=== PATIENT | male | born 1945 | race Caucasian/White ===

== ENCOUNTER 2021-02-03 15:53 | Inpatient (IN) | payer OTHER, MEDICARE ==
[~2021-02-03] VITALS: Ht 180.3 cm; Wt 120.4 kg
[2021-02-03] MEDS ORDERED: ANORO ELLIPTA1 EAC1 INH (16:18)
[2021-02-03] MEDS ORDERED: ATOR10 PO (16:18)
[2021-02-03] MEDS ORDERED: GLIP10 PO (16:19)
[2021-02-03] MEDS ORDERED: LEVOCETIRIZINE D5 MG PO (16:19)
[2021-02-03] MEDS ORDERED: TAMSULOSIN HCL0.4 M1 PO (16:19)
[2021-02-03] MEDS ORDERED: LISI20 PO (16:19)
[2021-02-03 17:02] LABS: BASOPHILS ABSOLUTE AUTO 0.03 K/mm3 (0.00-0.23); BASOPHILS PERCENT AUTO 0 % (0-2); EOSINOPHILS PERCENT AUTO 0 % (0-6); Hematocrit 41.7 % (37.0-53.0); Hemoglobin 14.2 g/dL (13.5-17.5); IMMATURE GRAN PERCENT AUTO 1 % (0-1); LYMPHOCYTES PERCENT AUTO 6 % (21-46); MONOCYTES ABSOLUTE AUTO 1.61 K/mm3 (0.16-1.47); MONOCYTES PERCENT AUTO 11 % (4-13); Mean Corpuscular HGB 30.8 pg (26.0-34.0); Mean Corpuscular HGB Conc 34.1 g/dL (31.5-36.5); Mean Corpuscular Volume 91 fL (80-100); Mean Platelet Volume 11.3 fL (9.1-12.4); NEUTROPHILS PERCENT AUTO 82 % (41-73); Platelet Count 146 K/mm3 (150-400); RDW Standard Deviation 39.3 fL (35.1-46.3); Red Blood Cell Count 4.61 M/mm3 (4.30-5.90); White Blood Cell Count 14.64 K/mm3 (4.00-11.30)
[2021-02-03 17:18] LABS: International Normalized Ratio 1.11; Prothrombin Time Results 11.9 Sec (9.7-11.5)
[2021-02-03 17:26] LABS: Alanine Aminotransfer (ALT/SGP 25 U/L (12-78); Albumin/Globulin Ratio 0.8 (0.8-1.8); Alk Phos 40 U/L (50-136); Anion Gap 8 mmol/L (6-16); Aspartate Aminotrans (AST/SGOT 13 U/L (12-37); Blood Urea Nitrogen 25 mg/dL (8-24); Bun/Creatinine Ratio 22.9 (12.0-20.0); CO2, Blood 21 mmol/L (21-32); Calcium, Blood 8.3 mg/dL (8.5-10.1); Chloride, Blood 107 mmol/L (98-108); Creatinine, Blood 1.09 mg/dL (0.60-1.20); Glomerular Filtration Rate >60 (60-); Glucose, Blood 204 mg/dL (70-99); Potassium, Blood 4.2 mmol/L (3.5-5.5); Sodium, Blood 136 mmol/L (136-145)
[2021-02-03 17:28] LABS: Troponin I <0.015 ng/mL (0.000-0.040)
[2021-02-03 17:53] LABS: SARS-Cov-2 (COVID-19) PCR, MMC NEGATIVE (NEGATIVE)
[2021-02-03] MEDS ORDERED: Aspir 8181 MG PO (18:21)
[2021-02-03] MEDS ORDERED: ALBU90OI INH (18:24)
[2021-02-03] MEDS ORDERED: OMEP20ER PO (18:24)
[2021-02-03] MEDS ORDERED: Hair, Skin & N1 EACH PO (18:25)
[2021-02-03] MEDS ORDERED: METAMUCIL POWD575 GM PO (18:25)
[2021-02-03] MEDS ORDERED: NASACORT10.8 ML (18:25)
[2021-02-03] MEDS ORDERED: ASCO500 PO (18:25)
[2021-02-03] MEDS ORDERED: ACYC800 PO (18:26)
[2021-02-03] MEDS ORDERED: IPRATROPIUM BRO15 ML (18:26)
[2021-02-03 19:38] LABS: Source, Urine Clean Catch
[2021-02-03 19:46] LABS: Appearance, Urine Clear (Clear); Blood, Urine Neg (Neg); Color, Urine Yellow (P-Yellow); Glucose Qualitative, Urine Neg (Neg); Ketones, Urine 1+ (Neg); Leukocyte Esterase, Urine 1+ (Neg); Nitrite, Urine Neg (Neg); Protein, Urine 2+ (Neg); Specific Gravity, Urine 1.025 (1.003-1.022); Urobilinogen, Urine 1+ (Normal)
[2021-02-03 19:56] LABS: Bilirubin, Urine 1+ (Neg)
[2021-02-03 20:09] LABS: Amorphous Mod (0-Heavy); Bacteria Mod /hpf; Mucus Light (0-Heavy); Red Blood Cells, Urine 0-2 /hpf (0-2); Squamous Epithelial Cells Few /hpf (Few)
--- NOTE | 2021-02-03 22:43 | NUR ---
PT CURRENTLY RESTING IN BED QUIETLY. HE REPORTS PAIN AT A 1/10, UNLESS MOVED OR ABDOMEN PALPATED. A&O TO PERSON, PLACE, AND EVENT AND IS PLEASANT AND CALM. ABDOMEN IS DISTENDED MODERATELY AND TENDER. DENIES ANY NAUSEA OR VOMITING AT THIS TIME. LUNGS ARE CLEAR BILATERALLY, SATS >95% ON 2L NC. HR IS AFIB/AFLUTTER AND TACHY IN 110-120S. BLOOD PRESSURE ARE IN 100-90S/70-80S. PT REPORTS URINARY INCONTINENCE AND WEARS DEPENDS AT HOME. PT CLEANED AND DEPENDS CHANGED. SKIN GROSSLY INTACT, NO SIGNS OF BREAKDOWN. RIGHT IV SALINE LOCKED. LEFT IV INFUSING NS @ 100ML/HR. WAS NOTIFIED OF PT'S STATUS.
--- NOTE | 2021-02-04 04:00 | NUR ---
PT NOTED TO HAVE AFIB W/ RVR RATE OF 150 FOR OVER 30 MINUTES, CALL MADE TO DR. AMADO IN REGARDS TO SUCH, ORDER RECEIVED FOR BOLUS OF LR 600ML WO X 1. NO OTHER ORDERS RECEIVED.
[2021-02-04 04:08] LABS: BASOPHILS ABSOLUTE AUTO 0.02 K/mm3 (0.00-0.23); BASOPHILS PERCENT AUTO 0 % (0-2); EOSINOPHILS PERCENT AUTO 0 % (0-6); Hematocrit 40.8 % (37.0-53.0); Hemoglobin 13.7 g/dL (13.5-17.5); IMMATURE GRAN ABSOLUTE AUTO 0.08 K/mm3 (0.00-0.10); IMMATURE GRAN PERCENT AUTO 1 % (0-1); LYMPHOCYTES ABSOLUTE AUTO 1.19 K/mm3 (0.84-5.20); LYMPHOCYTES PERCENT AUTO 9 % (21-46); MONOCYTES PERCENT AUTO 10 % (4-13); Mean Corpuscular HGB 30.8 pg (26.0-34.0); Mean Corpuscular HGB Conc 33.6 g/dL (31.5-36.5); Mean Corpuscular Volume 92 fL (80-100); Mean Platelet Volume 11.4 fL (9.1-12.4); NEUTROPHILS ABSOLUTE AUTO 11.33 K/mm3 (1.96-9.15); NEUTROPHILS PERCENT AUTO 81 % (41-73); Platelet Count 145 K/mm3 (150-400); RDW Standard Deviation 40.1 fL (35.1-46.3); Red Blood Cell Count 4.45 M/mm3 (4.30-5.90); White Blood Cell Count 14.02 K/mm3 (4.00-11.30)
[2021-02-04 04:31] LABS: Alanine Aminotransfer (ALT/SGP 21 U/L (12-78); Albumin, Blood 2.6 g/dL (3.4-5.0); Albumin/Globulin Ratio 0.6 (0.8-1.8); Alk Phos 44 U/L (50-136); Anion Gap 6 mmol/L (6-16); Aspartate Aminotrans (AST/SGOT 13 U/L (12-37); Bilirubin, Total 0.8 mg/dL (0.1-1.0); Blood Urea Nitrogen 23 mg/dL (8-24); Bun/Creatinine Ratio 27.2 (12.0-20.0); CO2, Blood 21 mmol/L (21-32); Calcium, Blood 8.1 mg/dL (8.5-10.1); Chloride, Blood 111 mmol/L (98-108); Creatinine, Blood 0.85 mg/dL (0.60-1.20); Globulin, Blood 4.1 g/dL (2.2-4.0); Glomerular Filtration Rate >60 (60-); Glucose, Blood 183 mg/dL (70-99); Potassium, Blood 3.8 mmol/L (3.5-5.5); Sodium, Blood 138 mmol/L (136-145); Total Protein, Blood 6.7 g/dL (6.4-8.2)
--- NOTE | 2021-02-04 06:23 | NUR ---
PT CONTINUES AFTER BOLUS TO HAVE AFIB W/ RVR, RATE IMPROVED SLIGHTLY TO 130'S. PT DENIES ANY CHEST PAIN OR SHORTNESS OF BREATH. HE STATES HE IS FEELING BETTER THAN HE WAS WHEN HE ARRIVED AT THE HOSPITAL. CONTINUES TO C/O PAIN IN THE RUQ, ESPECIALLY WHEN TOUCHED OR HE MOVES.
--- NOTE | 2021-02-04 06:35 | NUR ---
PT CURRENTLY RESTING. A&O X3, SLEPT WELL THROUGHOUT THE NIGHT. LUNGS CLEAR, SATS >95% ON 2L NC. PT OCCASIONAL COUGH, WITH THICK WHITE SPUTUM. AFIB/AFLUTTER WITH RVR, RATE IN 140-150'S. PRESSURES REMAINED IN 100-110'S/70-80'S. ABDOMEN REMAINS TENDER TO PALPATION, PT REPORTS PAIN ONLY WITH MOVEMENT/REPOSITIONING. DENIES NAUSEA/VOMITING, BOWEL TONES HYPERACTIVE WITH MULTIPLE SMALL BOWEL MOVEMENTS T/O SHIFT. PT REPORTS INCONTINENCE OF URINE, USES CALL LIGHT APPROPRIATELY FOR ATTENDS CHANGES. SKIN IS GROSSLY INTACT. AWAITING ECHO IN THE AM. WILL GIVE REPORT TO ONCOMING RN.
--- NOTE | 2021-02-04 08:33 | NUR ---
Care Assumed 0700 Pt A/O to location, event, and following directions. States having pain (8/10) on RUQ when touched otherwise pain is (2-3/10). On NS @ 100 ml/hr. HR 130-140's, AFIB/AFLUTTER. Attends in place. Lungs clear on 2 L via NC, SPO2 > 90%. Call light within reach.
--- NOTE | 2021-02-04 10:32 | NUR ---
Aflutter Pt treated with Lopressor per emar X 3, HR has decreased from 150-140's to 80-110. Provider called and left voicemail. MAP > 75. Will continue to monitor.
--- NOTE | 2021-02-04 12:10 | NUR ---
Update- Pt started on Diltiazem 5 mg/hr for HR control, pt remains in Aflutter HR 100-120's. Having frequent liquid diarrhea, states this is normal for him at home as well. Attempted to place rectal tube but pt did not tolerate. Pt states too painful. Attends in place.
--- NOTE | 2021-02-04 18:59 | NUR ---
Shift Summary Dr. Singleton in to see patient around 1600 and pt to be taken in for surgery tomorrow. Pt started on clear liquid diet. at bedside and updated. Pt provided dinner. Remains on Diltiazem GTT @ 15 mg/hr. HR 90-100, remains in Aflutter. Overall VSS. Pt remains A/O X 4. Call light within reach. Will report to nightshift.
--- NOTE | 2021-02-04 22:14 | NUR ---
ASSUMED CARE AT 1900 PT LAYING IN BED AND IS ALERT/ORIENTED X3, TO ALL EXCEPT DATE; OCCATIONALLY USES CALL LIGHT. REPORTS 2/10 PAIN WHEN AT REST TO THE RUQ BUT INCREASES TO A SHARP PAIN DURING ACTIVITY. SPO2 >94% ON 2L NC; DYSPNEA NOTED DURING ACTIVITY. A-FLUTTER NOTED; HR 100'S; CARDIZEM INFUSING AT 15MG/HR. BP STABLE. TEMP 99.6. PT INCONTINENT OF BLADDER AND BOWEL. PLAN TO BE NPO AT MIDNIGHT. SEE SHIFT ASSESSMENT FOR FULL ASSESSMENT.
[2021-02-05 03:20] LABS: BASOPHILS ABSOLUTE AUTO 0.02 K/mm3 (0.00-0.23); BASOPHILS PERCENT AUTO 0 % (0-2); EOSINOPHILS ABSOLUTE AUTO 0.05 K/mm3 (0.00-0.68); EOSINOPHILS PERCENT AUTO 1 % (0-6); Hematocrit 39.6 % (37.0-53.0); Hemoglobin 13.2 g/dL (13.5-17.5); IMMATURE GRAN ABSOLUTE AUTO 0.04 K/mm3 (0.00-0.10); IMMATURE GRAN PERCENT AUTO 0 % (0-1); LYMPHOCYTES ABSOLUTE AUTO 1.16 K/mm3 (0.84-5.20); LYMPHOCYTES PERCENT AUTO 12 % (21-46); MONOCYTES PERCENT AUTO 7 % (4-13); Mean Corpuscular HGB 30.7 pg (26.0-34.0); Mean Corpuscular HGB Conc 33.3 g/dL (31.5-36.5); Mean Corpuscular Volume 92 fL (80-100); NEUTROPHILS ABSOLUTE AUTO 8.03 K/mm3 (1.96-9.15); NEUTROPHILS PERCENT AUTO 80 % (41-73); Platelet Count 141 K/mm3 (150-400); RDW Standard Deviation 41.1 fL (35.1-46.3)
[2021-02-05 03:38] LABS: Alanine Aminotransfer (ALT/SGP 20 U/L (12-78); Albumin, Blood 2.4 g/dL (3.4-5.0); Albumin/Globulin Ratio 0.6 (0.8-1.8); Alk Phos 42 U/L (50-136); Anion Gap 5 mmol/L (6-16); Aspartate Aminotrans (AST/SGOT 13 U/L (12-37); Bilirubin, Total 0.5 mg/dL (0.1-1.0); Blood Urea Nitrogen 17 mg/dL (8-24); Bun/Creatinine Ratio 21.9 (12.0-20.0); CO2, Blood 23 mmol/L (21-32); Calcium, Blood 7.9 mg/dL (8.5-10.1); Chloride, Blood 115 mmol/L (98-108); Creatinine, Blood 0.78 mg/dL (0.60-1.20); Globulin, Blood 4.2 g/dL (2.2-4.0); Glomerular Filtration Rate >60 (60-); Glucose, Blood 179 mg/dL (70-99); Potassium, Blood 3.5 mmol/L (3.5-5.5); Sodium, Blood 143 mmol/L (136-145); Total Protein, Blood 6.6 g/dL (6.4-8.2)
--- NOTE | 2021-02-05 06:24 | NUR ---
END OF SHIFT SUMMARY NO ACUTE EVENTS OVERNIGHT. PT SLEPT ON AND OFF T/O THE SHIFT. HE IS ALERT/ORIENTED X3 AND ABLE TO USE HIS CALL LIGHT OCCATIONALLY. AFEBRILE. SPO2 >94% ON 2L NC. A-FLUTTER NOTED; HR 70-90'S; CARDIZEM TITRATED DOWN TO 5MG/HR. SBP 110-130. RUQ PAIN INCREASED DURING REPOSITIONING; FENTANYL GIVEN X1 AND HELPFUL. PT INCONTINENT OF BLADDER AND BOWEL; SEVERAL LOOSE STOOLS THIS SHIFT. PT NPO SINCE MIDNIGHT. WILL REPORT TO AM RN WHEN AVAILABLE.
--- NOTE | 2021-02-05 08:20 | NUR ---
ASSESSMENT- DR. SANCHEZ HERE-PLANS FOR SURGERY TODAY PT AWAKE, ALERT, COOPERATIVE. REQUESTING TO GET UP. UP TO CHAIR WITH ASSIST, AM CARE DONE. TALKATIVE, [place]. DENIES PAIN AT REST, STATES ABDOMEN TENDER TO TOUCH, REFUSES NEED FOR PAIN RX. AFLUTTER, BP STABLE. PIV INTACT LEFT FA, INFILTRATED RIGHT FA, SITE REPLACED. LUNGS CLEAR, NO SOB. DEPENDS ON.
--- NOTE | 2021-02-05 11:49 | NUR ---
PT SLEEPING WHEN UNDISTURBED, VSS. AFLUTTER, CARDIZEM CONTINUES AT 5 MG/HR. DID STATE HAD SOME SOB AFTER GETTING BACK TO BED, RESOLVED WITH RESPIRATORY TREATMENT. LUNGS CLEAR, MAINTAINING SATURATIONS. AT BEDSIDE
--- NOTE | 2021-02-05 13:36 | NUR ---
REPEAT BLOOD SUGAR 151. PT AWAKE, ALERT, READY FOR SURGERY. NPO. ATRIAL FLUTTER RATE 80'S. CARDIZEM GTT AT 5 MG/HR, 1/2 NS AT 75 CC/HR
--- NOTE | 2021-02-05 14:29 | NUR ---
REPORT TO CHARLENE LEE. PT READIED FOR SURGERY.
--- NOTE | 2021-02-05 15:15 | NUR ---
REPORT CALLED TO BRI SALDANA RN FOR POST OP TRANSFER
--- NOTE | 2021-02-05 16:17 | NUR ---
02/05/21 1617 JANICEBERNICE NIELSEN PT RECEIVED SCHEDULED DOSE OF ANTIBIOTICS INTRA OP PER DR ORDERS.
--- NOTE | 2021-02-05 17:47 | NUR ---
Update 02/05/2021: Fang is patients contact [phone] Lives at home with . Plan to return home post discharge. Pt. is now post-op. No discharge date/time planned at this time.
--- NOTE | 2021-02-05 18:13 | NUR ---
RECOVERY NOT- PT TO ICU POST OP-OR NURSES AND DR. SEGOVIA IN ATTENDANCE. PT ABLE TO OPEN EYES TO STIMULUS, BREATHING, ORAL ETT AND AIRWAY D/C BY DR. SEGOVIA, NRB APPLIED. AFLUTTER, BP STABLE. CARDIZEM AT 5 MG/HR. PIV X 2 INTACT. LUNGS WITH RHONCHI THROUGHOUT. NO BOWEL SOUNDS, ABDOMEN SOFT, 5 PUNCTURE SITES DI. RIGHT ABDOMEN DRAIN WITH BLOODY DRAINAGE-[address] SANCHEZ HERE-UPDATED. INCONTINENT URINE-ATTENDS CHANGED. SCDS ON.BLOOD SUGAR ELEVATED, COVERAGE GIVEN.
--- NOTE | 2021-02-05 18:42 | NUR ---
PT SLEEPING, AWAKENS EASILY TO NAME. DENIES PAIN AT REST. AFLUTTER-RATE 90-100'S. BP STABLE. NO N/V. MAINTAINING SATURATIONS WITH NASAL CANNULA 1/2 NS AT 75 CC/HR.
--- NOTE | 2021-02-05 20:45 | NUR ---
ASSUMING PT CARE: PT RESTING IN BED W/ EYES CLOSED, RR EVEN & UNLABORED. NC IN MOUTH TO KEEP SATS >92% PT SNORES HEAVILY WHILE ASLEEP. PT AWAKES TO NAME & INITIALLY APPEARS CONFUSED, HOWEVER WHEN GIVEN HEARING AIDS,PT IS ORIENTED x4, ABLE TO FOLLOW COMMANDS, & REQUESTS WATER & ICE CHIPS. ABD IS TENDER W/ MILD "CONSTANT DISCOMFORT BUT NO PAIN", PAIN W/IN PROPORTION. MONITOR INDICATES AFLUTTER W/ RATE 70s. PT IS STILL QUITE DROWSY & OFTEN FALLS ASLEEP DURING ASSESSMENTS. WILL CONTINUE CLEAR LIQUIDS UNTIL PT IS MORE AWAKE. GTTs: DILTIAZEM 10mg/hr. 1/2 NS @ 100ml/hr.
[2021-02-05 23:24] LABS: Vancomycin, Trough 10.2 ug/mL (5.0-10.0)
--- NOTE | 2021-02-05 23:42 | NUR ---
UPDATE: DIET ADVANCEMENT PT TOLERATING ICE CHIPS & WATER VERY WELL. ABLE TO TAKE PO MEDS W/O DIFF. HE IS MUCH MORE AWAKE & MOVING MORE IN BED, ABLE TO SHIFT HIPS & REPOSITION SELF FOR COMFORT. PT PROVIDED W/ MAGIC CUP & ATE W/O DIFF OR C/O NAUSEA. WILL CONTINUE TO MONITOR CLOSELY & REPORT APPROPRIATE.
[2021-02-06 03:45] LABS: BASOPHILS ABSOLUTE AUTO 0.01 K/mm3 (0.00-0.23); BASOPHILS PERCENT AUTO 0 % (0-2); EOSINOPHILS PERCENT AUTO 0 % (0-6); Hematocrit 39.1 % (37.0-53.0); IMMATURE GRAN ABSOLUTE AUTO 0.05 K/mm3 (0.00-0.10); IMMATURE GRAN PERCENT AUTO 1 % (0-1); LYMPHOCYTES ABSOLUTE AUTO 0.49 K/mm3 (0.84-5.20); LYMPHOCYTES PERCENT AUTO 5 % (21-46); MONOCYTES ABSOLUTE AUTO 0.63 K/mm3 (0.16-1.47); MONOCYTES PERCENT AUTO 6 % (4-13); Mean Corpuscular HGB 30.9 pg (26.0-34.0); Mean Corpuscular HGB Conc 33.2 g/dL (31.5-36.5); Mean Corpuscular Volume 93 fL (80-100); NEUTROPHILS ABSOLUTE AUTO 8.98 K/mm3 (1.96-9.15); NEUTROPHILS PERCENT AUTO 88 % (41-73); Platelet Count 177 K/mm3 (150-400); RDW Coefficient Variation 12.1 % (11.7-14.2); RDW Standard Deviation 41.2 fL (35.1-46.3); Red Blood Cell Count 4.21 M/mm3 (4.30-5.90); White Blood Cell Count 10.16 K/mm3 (4.00-11.30)
[2021-02-06 04:06] LABS: Alanine Aminotransfer (ALT/SGP 44 U/L (12-78); Albumin, Blood 2.3 g/dL (3.4-5.0); Albumin/Globulin Ratio 0.5 (0.8-1.8); Alk Phos 46 U/L (50-136); Anion Gap 8 mmol/L (6-16); Aspartate Aminotrans (AST/SGOT 34 U/L (12-37); Bilirubin, Total 0.3 mg/dL (0.1-1.0); Blood Urea Nitrogen 28 mg/dL (8-24); Bun/Creatinine Ratio 28.6 (12.0-20.0); CO2, Blood 20 mmol/L (21-32); Chloride, Blood 114 mmol/L (98-108); Creatinine, Blood 0.98 mg/dL (0.60-1.20); Globulin, Blood 4.4 g/dL (2.2-4.0); Glomerular Filtration Rate >60 (60-); Glucose, Blood 284 mg/dL (70-99); Potassium, Blood 4.4 mmol/L (3.5-5.5); Sodium, Blood 142 mmol/L (136-145); Total Protein, Blood 6.7 g/dL (6.4-8.2)
--- NOTE | 2021-02-06 06:30 | NUR ---
SHIFT SUMMARY: PT RESTED WELL T/O THE NIGHT, AWAKING A FEW TIMES D/T PAIN. AFTER PO PAIN MEDS PT WAS ABLE TO REST SOUNDLY. DIET ADVANCED, PT TOLERATING SOFT FOODS WELL. NO N/V OR INC ABD PAIN. MONITOR INDICATES AFLUTTER W/ RATE IN THE 70s. DILTIAZEM @7mg/hr. ABD ONLY MILDLY TENDER. HYPOACTIVE, TINKLING BT. MAHENDRA DRAINING WELL W/ SEROSANGUINOUS OUTPUT. WILL CONTINUE TO MONITOR & REPORT APPROPRIATE UNTIL REPORT OFF TO ONCOMING RN.
--- NOTE | 2021-02-06 09:51 | NUR ---
AM NOTE... ASSUMED CARE OF PT AT 0700, PT IS A&Ox4 AND S/P LAP DANIELEY. PT C/O ABD WITH MOVEMENT OR COUGHING, PT TAUGHT TO SPLINT ABD PRIOR TO COUGHING. PT IS IN AFLUTTER WITH A CONTROLLED RATE IN THE 70'S-90'S, ON CARDIZEM GTT AT 5MG/HR. PT DENIES ANY CHEST PAIN/PRESSURE. PT DENIES A HISTORY OF AFLUTTER/AFIB, PT WAS STARTED ON PO METOPROLOL TARTRATE. PT IS ON 2L NC WITH O2 SATS >90%, PT DOES NOT USE O2 AT HOME JUST A CPAP, PT'S L/C COARSE T/O DIM IN THE BASES. PT HAS DEPENDENT SCROTAL EDEMA, PT HAS EPISODES OF INCONT OF URINE D/T "LEAKING" AND URGENCY. PT ASKED THIS RN IF HE COULD GET UP IN THE CHAIR AND "GET MOVING." CALL LIGHT IN REACH WILL CONTINUE TO MONITOR.
--- NOTE | 2021-02-06 19:36 | NUR ---
ASSUMING PT CARE: PT SITTING UP IN BED, WATCHING TV. APPROPRIATELY INTERACTIVE W/ STAFF. PT C/O INC ABD PRESSURE & DISCOMFORT, HE DENIES FEELING PAIN, ONLY THAT HE IS INCREASINGLY UNCOMFORTABLE. WHEN IS BOOSTED & BED & MOVED FROM SIDE TO SIDE, HE IS ABLE TO BELCH & PRODUCE FLATUS WHICH RELIEVED HIS DISCOMFORT SOMEWHAT. MAHENDRA DRAIN W/ APPROX 50cc DARK BILIOUS DRAINAGE. INSERTION SITE DOES APPEAR MORE DISTENDED COMPARED TO LAST NIGHT. AREA IS TENDER BUT PAIN APPEARS W/IN PROPORTION. DR SANCHEZ CALLED TO BEDSIDE TO ASSESS. SHE EXPLAINS BECAUSE OF THE PORTION OF THE GALBLADDER WHICH WAS LEFT IN THE ABD, IT WILL BE NML TO SEE BOTH BILIOUS & SEROSANGUINOUS DRAINAGE. SHE STS SHE IS NOT CONCERNED OF THE DISTENTION & AGREES PT IS APPROPRIATE TO BE TRANSFERRED TO SURGICAL FLOOR. REPORT TO BE GIVEN SHORTLY.
--- NOTE | 2021-02-06 21:00 | NUR ---
BEDSIDE REPORT GIVEN TO SURGICAL FLOOR RN PT OOTD W/ SURGICAL FLOOR TEAM VIA WC.
--- NOTE | 2021-02-06 21:05 | NUR ---
RECEIVED BEDSIDE REPORT IN ICU AND TRANSFERRED PT TO SURGICAL FLOOR. HE IS AWAKE, ALERT, AND ORIENTED. ONE PERSON ASSIST WITH TRANSFER FROM RECLINER TO WHEELCHAIR AND THEN TO BED. HEARING AIDS AND MAHENDRA DRAIN IN PLACE. PERSONAL BELONGINGS TRANSPORTED WITH PT TO SURGICAL FLOOR. AVERY.
[2021-02-06 23:51] LABS: Vancomycin, Trough 13.1 ug/mL (5.0-10.0)
[2021-02-07 05:35] LABS: BASOPHILS ABSOLUTE AUTO 0.02 K/mm3 (0.00-0.23); BASOPHILS PERCENT AUTO 0 % (0-2); EOSINOPHILS ABSOLUTE AUTO 0.03 K/mm3 (0.00-0.68); EOSINOPHILS PERCENT AUTO 0 % (0-6); Hematocrit 43.4 % (37.0-53.0); Hemoglobin 14.5 g/dL (13.5-17.5); IMMATURE GRAN ABSOLUTE AUTO 0.06 K/mm3 (0.00-0.10); IMMATURE GRAN PERCENT AUTO 1 % (0-1); LYMPHOCYTES ABSOLUTE AUTO 1.14 K/mm3 (0.84-5.20); LYMPHOCYTES PERCENT AUTO 10 % (21-46); MONOCYTES PERCENT AUTO 9 % (4-13); Mean Corpuscular HGB 30.2 pg (26.0-34.0); Mean Corpuscular HGB Conc 33.4 g/dL (31.5-36.5); Mean Corpuscular Volume 90 fL (80-100); Mean Platelet Volume 11.3 fL (9.1-12.4); NEUTROPHILS ABSOLUTE AUTO 9.28 K/mm3 (1.96-9.15); NEUTROPHILS PERCENT AUTO 80 % (41-73); Platelet Count 228 K/mm3 (150-400); RDW Coefficient Variation 11.9 % (11.7-14.2); RDW Standard Deviation 40.3 fL (35.1-46.3); White Blood Cell Count 11.53 K/mm3 (4.00-11.30)
[2021-02-07 05:54] LABS: Alanine Aminotransfer (ALT/SGP 34 U/L (12-78); Albumin, Blood 2.5 g/dL (3.4-5.0); Albumin/Globulin Ratio 0.5 (0.8-1.8); Alk Phos 53 U/L (50-136); Anion Gap 8 mmol/L (6-16); Aspartate Aminotrans (AST/SGOT 14 U/L (12-37); Bilirubin, Total 0.4 mg/dL (0.1-1.0); Blood Urea Nitrogen 28 mg/dL (8-24); Bun/Creatinine Ratio 33.2 (12.0-20.0); CO2, Blood 21 mmol/L (21-32); Calcium, Blood 8.6 mg/dL (8.5-10.1); Chloride, Blood 112 mmol/L (98-108); Creatinine, Blood 0.84 mg/dL (0.60-1.20); Globulin, Blood 4.6 g/dL (2.2-4.0); Glomerular Filtration Rate >60 (60-); Glucose, Blood 214 mg/dL (70-99); Potassium, Blood 3.7 mmol/L (3.5-5.5); Sodium, Blood 141 mmol/L (136-145); Total Protein, Blood 7.1 g/dL (6.4-8.2)
--- NOTE | 2021-02-07 06:20 | NUR ---
SHIFT SUMMARY: CLIFTON IS A&OX4. VSS, NO ACUTE EVENTS OVERNIGHT. HE HAS COMPLAINED OF VERTIGO AND IT WAS NOTED THAT HIS BLOOD PRESSURE WAS LOW DIRECTLY AFTER RETURNING TO BED, BUT AN IMMEDIATE REPEAT SHOWED BP IN HIS TRENDING RANGE, POSSIBLY ORTHOSTATICS. HE REPORTS THAT HE OCCASIONALLY EXPERIENCES VERTIGO AT HOME AND THAT IT MAY CAUSE HIM TO REMAIN IN BED FOR FOUR OR MORE DAYS. HE HAS COMPLAINED OF GAS PAIN AND STATES THAT HE IS BELCHING COPIOUS AMOUNTS AND THAT HE HAS ALSO PASSED SOME FLATUS. HE IS LYING IN BED WITH THE CALL LIGHT IN REACH. WILL REPORT TO DAY SHIFT RN.
--- NOTE | 2021-02-07 17:48 | NUR ---
SHIFT SUMMARY PATIENT ALERT AND ORIENTED THROUGHOUT SHIFT. [place]. NOT TOLERATING CLEARS THIS SHIFT. NAUSEATED AT TIMES WITH ONE EPISODE OF VOMITING. ABD DISTENTION SIGNIFICANT. NO BM, NO GAS. COPIOUS OUTPUT PER MAHENDRA DRAIN. SBA WITH FWW AND GAIT BELT TO BATHROOM. SOMETIMES INC OF URINE IN PULL UPS. ORTHOSTATIC WHEN STANDS UP. AMBULATE WITH CAUTION, BP STABILIZES WITHIN 20-30 MINUTES. PATIENT HAS ONLY EXPERIENCED SLIGHT DIZZINESS. ATRIAL FLUTTER IN 90S PER TELE. ABD INCISIONS WNL. PLAN TO CONTINUE TO ATTEMPT CLEAR LIQUIDS.
--- NOTE | 2021-02-07 19:59 | NUR ---
RECEIVED REPORT AND ASSUMED CARE OF PT. HE IS LYING QUIETLY IN BED WITH HIS EYES CLOSED, EVEN, UNLABORED RESPIRATIONS, CPAP IN PLACE. WCTM.
--- NOTE | 2021-02-08 03:30 | NUR ---
CLIFTON WAS FOUND SITTING UP AT THE BEDSIDE ATTEMPTING TO COUGH UP AND CLEAR PHLEGM. HE WAS UNABLE TO SPEAK FOR APPROXIMATELY ONE MINUTE THEN STATED THAT HE IS HAVING DIFFICULTY CLEARING THE PHLEGM. LSCTAB. ON-CALL PHYSICIAN NOTIFIED, NEW ORDER FOR FLUTTER VALVE OBTAINED. RT NOTIFIED.
[2021-02-08 04:57] LABS: BASOPHILS ABSOLUTE AUTO 0.03 K/mm3 (0.00-0.23); BASOPHILS PERCENT AUTO 0 % (0-2); EOSINOPHILS ABSOLUTE AUTO 0.19 K/mm3 (0.00-0.68); EOSINOPHILS PERCENT AUTO 2 % (0-6); Hematocrit 42.2 % (37.0-53.0); Hemoglobin 14.1 g/dL (13.5-17.5); IMMATURE GRAN ABSOLUTE AUTO 0.09 K/mm3 (0.00-0.10); IMMATURE GRAN PERCENT AUTO 1 % (0-1); LYMPHOCYTES ABSOLUTE AUTO 1.22 K/mm3 (0.84-5.20); LYMPHOCYTES PERCENT AUTO 10 % (21-46); MONOCYTES ABSOLUTE AUTO 1.11 K/mm3 (0.16-1.47); MONOCYTES PERCENT AUTO 9 % (4-13); Mean Corpuscular HGB 30.5 pg (26.0-34.0); Mean Corpuscular HGB Conc 33.4 g/dL (31.5-36.5); Mean Corpuscular Volume 91 fL (80-100); Mean Platelet Volume 10.9 fL (9.1-12.4); NEUTROPHILS ABSOLUTE AUTO 9.66 K/mm3 (1.96-9.15); NEUTROPHILS PERCENT AUTO 79 % (41-73); Platelet Count 255 K/mm3 (150-400); RDW Coefficient Variation 12.1 % (11.7-14.2); RDW Standard Deviation 40.7 fL (35.1-46.3); Red Blood Cell Count 4.62 M/mm3 (4.30-5.90)
[2021-02-08 05:30] LABS: Alanine Aminotransfer (ALT/SGP 27 U/L (12-78); Albumin, Blood 2.3 g/dL (3.4-5.0); Albumin/Globulin Ratio 0.5 (0.8-1.8); Alk Phos 51 U/L (50-136); Anion Gap 7 mmol/L (6-16); Aspartate Aminotrans (AST/SGOT 16 U/L (12-37); Bilirubin, Total 0.5 mg/dL (0.1-1.0); Blood Urea Nitrogen 27 mg/dL (8-24); Bun/Creatinine Ratio 32.6 (12.0-20.0); CO2, Blood 22 mmol/L (21-32); Calcium, Blood 8.5 mg/dL (8.5-10.1); Chloride, Blood 112 mmol/L (98-108); Creatinine, Blood 0.83 mg/dL (0.60-1.20); Globulin, Blood 4.3 g/dL (2.2-4.0); Glomerular Filtration Rate >60 (60-); Glucose, Blood 181 mg/dL (70-99); Potassium, Blood 3.7 mmol/L (3.5-5.5); Sodium, Blood 141 mmol/L (136-145); Total Protein, Blood 6.6 g/dL (6.4-8.2)
--- NOTE | 2021-02-08 06:26 | NUR ---
SHIFT SUMMARY: CLIFTON IS A&OX4. VSS, NO ACUTE EVENTS OVERNIGHT. HE IS COMPLAINING OF INCREASED PAIN THIS AM, OXYCODONE AND FENTANYL FOR PAIN. HE IS BELCHING QUITE A BIT AND PASSING FLATUS, NO BM YET. ONE PERSON ASSIST TO THE BATHROOM WITH THE FWW, ATTENDS IN PLACE. MAHENDRA DRAIN WITH BILLIOUS OUTPUT. HE DENIES ANY DIFFICULTY URINATING. HOME CPAP AT BEDSIDE, CONTINUOUS PULSE OX IN PLACE. HE IS LYING IN BED WITH THE CALL LIGHT IN REACH. WILL REPORT TO DAY SHIFT RN.
[2021-02-08 11:34] LABS: Vancomycin, Trough 14.1 ug/mL (5.0-10.0)
--- NOTE | 2021-02-08 13:26 | NUR ---
ADMIT: 02/03/21 DISCHARGE: DX: Sepsis CC: [email or web address] SOPHIA CALL: RESIDENCE: home CAREGIVER: Fang Greenberg, Spouse / Partner, DX: hypersomnia, kidney stone, SELENA, DM-type 2 DME: none CCM: none HOME HEALTH: none SUMMARY: 02/08/21- pt currently on antibiotics and has new onset of Afib/A-flutter. It is noted that pt has increase in abdominal discomfort, has increase in belching but not able to pass gas. Per Dr. Schneider, no plan for d/c at this time. -hannah
--- NOTE | 2021-02-08 17:24 | NUR ---
SUMMARY NO ACUTE CHANGES T/O SHIFT. PT C/O OF HEARTBURN THIS AM. DR SANCHEZ ORDERED TUMS AND PROTONIX WHICH WERE ADMINISTERED PER ORDERS. PT REPORTS THIS AFTERNOON SYMPTOMS HAVE IMPROVED. TOLERATED SMALL AMOUNT ICECREAM AND KATTY MIST. HAS TEA AT BEDSIDE. DOES NOT WISH TO HAVE DINNER TRAY OR ADVANCE DIET THIS EVENING. DENIES ANY PAIN AT THIS TIME. PASSING FLATUS. MAHENDRA DRAINING BROWN FLUID. PT RESTING W/HOME CPAP IN PLACE.
--- NOTE | 2021-02-09 07:32 | NUR ---
SUMMARY PT TOLERATING SMALL AMNTS CLR- FULL LIQ TONIGHT,REPORTS PASSING SOME FLATUS. SITTING UIP IN CHAIR AT BEDSIDE THIS AM.
--- NOTE | 2021-02-09 13:58 | NUR ---
02/09/21- per chart review, PT and OT have been ordered for the pt. Dr. Singleton has seen the pt, noted he hasn't had BM still, bowel protocol started. PT note recommends SNF due to limited activity level. Pt tired and limited engagement due to poor sleep last night. -kjw
--- NOTE | 2021-02-09 19:39 | NUR ---
SHIFT SUMMARY PATIENT ALERT AND ORIENTED THROUGHOUT SHIFT. [place]. TOLERATING CLEARS. BELLY IS SOFT. PASSING GAS AND ONE LIQUID BM THIS SHIFT. MAHENDRA WITH MODERATE OUTPUT. ROUTINE ABX. LAP SITES C/D/I. PLAN IS TO ADVANCE DIET TO ADA REGULAR. PAIN CONTROLLED WITH PO PAIN MEDS. WORKING WELL WITH PHYSICAL THERAPY AND OT. REPORT GIVEN TO ELECTRICAL INSTALLATION SUPERVISOR RN.
--- NOTE | 2021-02-10 02:30 | NUR ---
DR. AMADO NOTIFIED OF TELEMETRY EVENT AT APPROX 0200. PER TELE, PT HAD A 9.39 SECOND PAUSE. PT NOW BACK IN A/FLUTTER WITH HR OF 86. PT CURRENTLY SLEEPING. ORDER TO DISCONTINUE SCHEDULED+PRN METOPROLOL AND TO ADD MAGNESIUM ON TO MORNING LABS.
--- NOTE | 2021-02-10 04:59 | NUR ---
SHIFT SUMMARY: PT A&O X4. DROWSY THIS SHIFT. LAP SITES C/D/I WITH WOUND GLUE. IVF AND IV ABX INFUSING PER EMAR. 210CC EMPTIED FROM MAHENDRA DRAIN SO FAR THIS SHIFT. PT C/O ABD PAIN ONCE AND MEDICATED WITH OXY AND TYLENOL PER EMAR. PT REPORTS PASSING FLATUS. ACTIVE BT X4. LIQ BM X1 THIS SHIFT. PT TOLERATING A SMALL AMOUNT OF CLEAR LIQ. DENIES N/V. PT HAD A 9.39 SECOND PAUSE PER TELE (SEE NOTE) AND ORDERS OBTAINED. PT NOW BACK IN A/FLUTTER. PT APPEARS TO BE RESTING MOST OF SHIFT.
[2021-02-10 05:18] LABS: BASOPHILS ABSOLUTE AUTO 0.02 K/mm3 (0.00-0.23); BASOPHILS PERCENT AUTO 0 % (0-2); EOSINOPHILS ABSOLUTE AUTO 0.23 K/mm3 (0.00-0.68); EOSINOPHILS PERCENT AUTO 3 % (0-6); Hematocrit 39.4 % (37.0-53.0); Hemoglobin 13.3 g/dL (13.5-17.5); IMMATURE GRAN ABSOLUTE AUTO 0.15 K/mm3 (0.00-0.10); IMMATURE GRAN PERCENT AUTO 2 % (0-1); LYMPHOCYTES ABSOLUTE AUTO 1.19 K/mm3 (0.84-5.20); LYMPHOCYTES PERCENT AUTO 13 % (21-46); MONOCYTES ABSOLUTE AUTO 0.94 K/mm3 (0.16-1.47); MONOCYTES PERCENT AUTO 11 % (4-13); Mean Corpuscular HGB 30.9 pg (26.0-34.0); Mean Corpuscular HGB Conc 33.8 g/dL (31.5-36.5); Mean Corpuscular Volume 92 fL (80-100); Mean Platelet Volume 11.1 fL (9.1-12.4); NEUTROPHILS ABSOLUTE AUTO 6.43 K/mm3 (1.96-9.15); NEUTROPHILS PERCENT AUTO 72 % (41-73); Platelet Count 249 K/mm3 (150-400); RDW Coefficient Variation 11.9 % (11.7-14.2); RDW Standard Deviation 39.7 fL (35.1-46.3); White Blood Cell Count 8.96 K/mm3 (4.00-11.30)
[2021-02-10 05:28] LABS: Anion Gap 6 mmol/L (6-16); Blood Urea Nitrogen 21 mg/dL (8-24); Bun/Creatinine Ratio 24.5 (12.0-20.0); CO2, Blood 24 mmol/L (21-32); Calcium, Blood 8.2 mg/dL (8.5-10.1); Chloride, Blood 112 mmol/L (98-108); Creatinine, Blood 0.86 mg/dL (0.60-1.20); Glomerular Filtration Rate >60 (60-); Glucose, Blood 177 mg/dL (70-99); Magnesium, Blood 2.3 mg/dL (1.6-2.4); Potassium, Blood 3.5 mmol/L (3.5-5.5); Sodium, Blood 142 mmol/L (136-145)
--- NOTE | 2021-02-10 16:33 | NUR ---
DRESSING AROUND MAHENDRA DRAIN CHANGED AT THIS TIME.
--- NOTE | 2021-02-10 16:50 | NUR ---
SHIFT SUMMARY POD 4 LAP MAXX WITH LYSIS OF ADHESIONS. MAHENDRA DRAIN TO RUQ HAD 270 OUT TODAY OF BROWN/YELLOW. SLIGHT SHADOWING TO LOWER ABDOMEN NOTICED, REDNESS AROUND MAHENDRA DRAIN SITE. PT DENIES MUCH ABDOMINAL PAIN. REPORTS 2 TO 3/10 DURING DAY. REMAINS A FLUTTER PER TELE. TOLERATING HIS DIET WELL, NO NAUSEA. FREQUENT LOOSE STOOLS DURING SHIFT, HAS URGENCY, UNABLE TO MAKE IT TO TOILET AT TIMES. PT WORKED WITH THERAPY AND MOVES WELL WITH FWW/GB.
--- NOTE | 2021-02-11 07:27 | NUR ---
PT A/OX4. VSS ON RA. PAIN MANAGED WELL W/ TYLENOL. MAHENDRA DRAINS FREQUENTLY DRAINED Q2-3 HRS. NO CHANGE NOTED IN ABDOMINAL BRUISE OVERNIGHT. SLEEPING B/W CARE. USING CALL LIGHT TO MAKE NEEDS KNOWN. HR UP TO 150S ON TELE WHEN PT AMBULATING.
--- NOTE | 2021-02-11 19:41 | NUR ---
SHIFT SUMMARY PT DENIED PAIN DURING SHIFT. MAHENDRA DRAIN CONTINUES TO HAVE LARGE AMOUNT OF DRAINAGE, DRESSING CHANGED X2 DURING SHIFT. PT PASSING GAS AND REPORTS BOWEL MOVEMENTS BECOMING MORE SOLID TODAY. PT ENCOURAGED AFTER WORKING WITH THERAPY TODAY AND IS VERY ADAMANT ON GOING HOME AND NOT TO A SNF. PLAN IS FOR PATIENT TO DISCHARGE WITH MAHENDRA DRAIN ONCE MEDICALLY CLEARED AND A PLAN OF DISCHARGE IS IN PLACE.
--- NOTE | 2021-02-12 06:12 | NUR ---
PT A/OX4. VSS ON RA. PER PT, PT FEELDS STRONGER. AMBULATED IN HALLWAY 1X. AFLUTTER ON TELE W/ CONTROLLED HR, NO HR SPIKES W/ ACTIVITY OVERNIGHT. PAIN MANAGED WELL W/ OXYCODONE AND TYLENOL. MAHENDRA DRAIN BULB COMPRESSED W/ LESS OUTPUT THAN PREVIOUS NIGHT. AMBULATED IN HALLWAY. USING CALL LIGHT TO MAKE NEEDS KNOWN
[2021-02-12 10:08] LABS: BASOPHILS ABSOLUTE AUTO 0.03 K/mm3 (0.00-0.23); BASOPHILS PERCENT AUTO 0 % (0-2); EOSINOPHILS ABSOLUTE AUTO 0.33 K/mm3 (0.00-0.68); EOSINOPHILS PERCENT AUTO 3 % (0-6); Hematocrit 41.5 % (37.0-53.0); Hemoglobin 13.9 g/dL (13.5-17.5); IMMATURE GRAN ABSOLUTE AUTO 0.18 K/mm3 (0.00-0.10); IMMATURE GRAN PERCENT AUTO 2 % (0-1); LYMPHOCYTES ABSOLUTE AUTO 1.39 K/mm3 (0.84-5.20); LYMPHOCYTES PERCENT AUTO 12 % (21-46); MONOCYTES ABSOLUTE AUTO 0.81 K/mm3 (0.16-1.47); MONOCYTES PERCENT AUTO 7 % (4-13); Mean Corpuscular HGB 30.8 pg (26.0-34.0); Mean Corpuscular HGB Conc 33.5 g/dL (31.5-36.5); Mean Corpuscular Volume 92 fL (80-100); Mean Platelet Volume 11.5 fL (9.1-12.4); NEUTROPHILS ABSOLUTE AUTO 9.33 K/mm3 (1.96-9.15); NEUTROPHILS PERCENT AUTO 77 % (41-73); Platelet Count 256 K/mm3 (150-400); RDW Coefficient Variation 11.9 % (11.7-14.2); RDW Standard Deviation 40.1 fL (35.1-46.3); Red Blood Cell Count 4.51 M/mm3 (4.30-5.90); White Blood Cell Count 12.07 K/mm3 (4.00-11.30)
[2021-02-12 10:36] LABS: Anion Gap 8 mmol/L (6-16); Blood Urea Nitrogen 17 mg/dL (8-24); Bun/Creatinine Ratio 21.2 (12.0-20.0); CO2, Blood 20 mmol/L (21-32); Calcium, Blood 8.4 mg/dL (8.5-10.1); Chloride, Blood 113 mmol/L (98-108); Glomerular Filtration Rate >60 (60-); Glucose, Blood 243 mg/dL (70-99); Potassium, Blood 3.5 mmol/L (3.5-5.5); Sodium, Blood 141 mmol/L (136-145)
[2021-02-12] MEDS ORDERED: PANT40 PO (13:03)
--- NOTE | 2021-02-12 16:10 | NUR ---
DISCHARGE NOTE: PATIENT AND WERE EDUCATED ON DISCHARGE INSTRUCTIONS. BOTH VERBALIZED UNDERSTANDING OF INSTRUCTIONS. PERSCRIPTIONS WERE FAXED TO THE PATIENTS PREFERRED PHARMACY. PATIENT HAS 3 LAP SITES AND A MAHENDRA DRAIN THAT ARE ALL C/D/I. PATIENT IS TO GO HOME WITH THE MAHENDRA DRAIN AND WILL FOLLOW UP WITH DR. SANCHEZ WITHIN 2 WEEKS. PATIENT IS TOLERATING PO INTAKE, VOIDING, AND PASSING GAS. HE AMBULATES WITH A FWW AND A GAIT BELT. PATIENT DENIES ANY NAUSEA OR VOMITING. PAIN IS MANAGED WITH PO TYLENOL. IV WAS TAKEN OUT AND WAS WNL. HE IS DRESSED AND HAS ITEMS IN THE ROOM GATHERED. HE WAS WHEELCHAIRED OUT TO THE 'S CAR TO BE TAKEN HOME. BOTH PATIENT AND WERE A PLEASURE TO WORK WITH. THEY WILL BE HAVING HOME HEALTH AND WILL FOLLOW UP WITH DR. SANCHEZ WITHIN 2 WEEKS.
== END 2021-02-12 15:50 | disposition home or self-care (01) | DRG 853 ==
LOC: ER 15:53 → ICUW 20:48 → SURS 20:48 → ICUW 21:32 → SURS 02-06 21:14
PROVIDERS: Emergency Medicine; Family Medicine; Internal Medicine; Surgery; ADMIT Internal Medicine
PROC: 0FT44ZZ Resection of Gallbladder, Percutaneous Endoscopic Approach (ICD-10-PCS; principal; 2021-02-05 11:30)
DX: A41.9 Sepsis, unspecified organism (principal); G93.41 Metabolic encephalopathy; K81.0 Acute cholecystitis; K82.1 Hydrops of gallbladder; I48.91 Unspecified atrial fibrillation; Z20.822 Contact with and (suspected) exposure to COVID-19; E86.0 Dehydration; R19.7 Diarrhea, unspecified; E11.9 Type 2 diabetes mellitus without complications; E78.5 Hyperlipidemia, unspecified; Z68.34 Body mass index [BMI] 34.0-34.9, adult; K21.9 Gastro-esophageal reflux disease without esophagitis; E66.9 Obesity, unspecified; N40.0 Benign prostatic hyperplasia without lower urinary tract symptoms; G47.33 Obstructive sleep apnea (adult) (pediatric); J44.9 Chronic obstructive pulmonary disease, unspecified; Z87.442 Personal history of urinary calculi; Z85.9 Personal history of malignant neoplasm, unspecified; Z90.49 Acquired absence of other specified parts of digestive tract; Z87.891 Personal history of nicotine dependence; Z79.899 Other long term (current) drug therapy; Z79.82 Long term (current) use of aspirin
CPT/HCPCS: 36415; 71045; 74176; 80048; 80053; 80202; 81001; 82947; 83605; 83735; 83880; 84484; 85025; 85610; 87040; 87086; 88304; 93005; 93010; 93306; 94640; 94664; 94667; 94760; 94762; 96361; 96365; 96366; 96367; 96375; 97110; 97116; 97161; 97166; 97530; 97535; 99285-25; A9270; C9113; J0692; J0696; J1100; J1650; J1956; J2250; J2405; J2543; J2704; J3010; J3370; J7030; J7050; J7120; U0004

== ENCOUNTER 2021-02-15 03:31 | Inpatient (IN) | payer OTHER ==
[~2021-02-15] VITALS: Ht 182.9 cm; Wt 110.7 kg
[~2021-02-15 03:31] MED LIST: ACYC800 PO; ALBU90OI INH; ANORO ELLIPTA1 EAC1 INH; ASCO500 PO; ATOR10 PO; Aspir 8181 MG PO; GLIP10 PO; Hair, Skin & N1 EACH PO; IPRATROPIUM BRO15 ML; LEVOCETIRIZINE D5 MG PO; LISI20 PO; METAMUCIL POWD575 GM PO; NASACORT10.8 ML; OMEP20ER PO; PANT40 PO; TAMSULOSIN HCL0.4 M1 PO
[2021-02-15 03:51] LABS: BASOPHILS ABSOLUTE AUTO 0.05 K/mm3 (0.00-0.23); BASOPHILS PERCENT AUTO 0 % (0-2); EOSINOPHILS ABSOLUTE AUTO 0.09 K/mm3 (0.00-0.68); EOSINOPHILS PERCENT AUTO 0 % (0-6); Hematocrit 43.1 % (37.0-53.0); Hemoglobin 14.4 g/dL (13.5-17.5); IMMATURE GRAN ABSOLUTE AUTO 0.24 K/mm3 (0.00-0.10); IMMATURE GRAN PERCENT AUTO 1 % (0-1); LYMPHOCYTES ABSOLUTE AUTO 1.16 K/mm3 (0.84-5.20); LYMPHOCYTES PERCENT AUTO 6 % (21-46); MONOCYTES ABSOLUTE AUTO 1.06 K/mm3 (0.16-1.47); MONOCYTES PERCENT AUTO 5 % (4-13); Mean Corpuscular HGB 30.4 pg (26.0-34.0); Mean Corpuscular HGB Conc 33.4 g/dL (31.5-36.5); Mean Corpuscular Volume 91 fL (80-100); Mean Platelet Volume 11.2 fL (9.1-12.4); NEUTROPHILS ABSOLUTE AUTO 17.62 K/mm3 (1.96-9.15); NEUTROPHILS PERCENT AUTO 87 % (41-73); Platelet Count 332 K/mm3 (150-400); RDW Coefficient Variation 11.9 % (11.7-14.2); RDW Standard Deviation 39.7 fL (35.1-46.3); Red Blood Cell Count 4.74 M/mm3 (4.30-5.90); White Blood Cell Count 20.22 K/mm3 (4.00-11.30)
[2021-02-15 04:19] LABS: Alanine Aminotransfer (ALT/SGP 25 U/L (12-78); Albumin, Blood 2.7 g/dL (3.4-5.0); Albumin/Globulin Ratio 0.7 (0.8-1.8); Alk Phos 56 U/L (50-136); Anion Gap 6 mmol/L (6-16); Aspartate Aminotrans (AST/SGOT 13 U/L (12-37); Bilirubin, Total 0.5 mg/dL (0.1-1.0); Blood Urea Nitrogen 16 mg/dL (8-24); Bun/Creatinine Ratio 17.3 (12.0-20.0); CO2, Blood 23 mmol/L (21-32); Calcium, Blood 8.5 mg/dL (8.5-10.1); Chloride, Blood 111 mmol/L (98-108); Creatinine, Blood 0.93 mg/dL (0.60-1.20); Globulin, Blood 3.8 g/dL (2.2-4.0); Glomerular Filtration Rate >60 (60-); Glucose, Blood 184 mg/dL (70-99); Magnesium, Blood 1.8 mg/dL (1.6-2.4); Potassium, Blood 4.1 mmol/L (3.5-5.5); Sodium, Blood 140 mmol/L (136-145); Total Protein, Blood 6.5 g/dL (6.4-8.2); Troponin I <0.015 ng/mL (0.000-0.040)
--- NOTE | 2021-02-15 14:08 | NUR ---
PT ADMIT TO PCU 6 AT 1140. TRANSFER VIA STAND AND PIVOT. VERY WEAK ON FEET NEEDING 2-3 STAFF MEMBERS FOR ASSISTANCE. NEURO WNL. PUPILS ROUND, EQUAL, AND REACTIVE. GLASSES IN PLACE. [place], BILATERAL HEARING AIDS. ON ROOM AIR SATING ABOVE 94%. TELE SHOWING AFLUTTER WITH HR 140-150'S. CARDIZEM DRIP AT 15. DR. HOWARD AWARE. EKG ORDERED. BP STABLE. NG TUBE IN PLACE TO LOW INTERMITTENT SUCTION. PLACEMENT CONFIRMED VIA XRAY. NG TUBE OUTPUT VERY MINIMAL. BOWEL TONES HYPOACTIVE. ABDOMEN TENDER TO TOUCH. MAHENDRA DRAIN TO RLQ, FROM PREVIOUS PARTIAL MAXX. DRAINING DARK GREEN/BROWN BILE. EMPTYING DRAIN NEEDED. DRESSING CHANGED. DR. SIAACS IN TO EXAMINE PT. NS INFUSING AT 75 ML/HR. ORIENTED TO ROOM/UNIT. CALL LIGHT IN REACH. SLEEPING ON AND OFF. WILL CONTINUE TO MONITOR.
[2021-02-15 15:10] LABS: SARS-Cov-2 (COVID-19) PCR, MMC NEGATIVE (NEGATIVE)
--- NOTE | 2021-02-15 17:02 | NUR ---
Update 02/15/2021: Patient's Fang contacted me this am to discuss his condition over the weekend and subsequent re-admission. Fang stated that pt. was doing well until he began having severe pain on Monday evening. The pain progressed and she decided to call for an ambulance early this am. Denied difficulty in caring for patient or needs beyond his need for hospitalization due to postoperative ileus. [facility] ordered at time of discharge from the hospital last week. I have contacted Elayne with [facility] and requested that they hold off on scheduling pt. for home visit until we update them on potential discharge date/time. Advised patient's Fang that I will call her to follow-up regarding patient's care tomorrow in the am.
--- NOTE | 2021-02-15 19:23 | NUR ---
SHIFT SUMMARY: ABDOMEN REMAINS TENDER AND PAINFUL. MEDICATED PER EMAR WITH RELIEF. PT SLEEPING ON AND OFF. TELE REMAINS AFLUTTER. CARDIZEM DRIP DISCONTINUED AND IV METOPROLOL GIVEN. HR NOW 90'S. DENIES CHEST PAIN. BP STABLE. MAHENDRA DRAIN EMPTIED NEEDED. COLORING AND DRAINAGE REMAINS UNCHANGED. NG TUBE DRAINING VERY SMALL AMOUNT OF BROWN COLORED GASTIC CONTENT IN TUBING. MODERATE BOWEL MOVEMENT - BROWN IN COLOR. ATTENDS IN PLACE. SCROTUM RED AND IRRITATED SKIN, PER SKIN HAS BEEN IRRITATED X1 WEEK, BARRIER CREAM APPLIED. CALL LIGHT IN REACH. REPORTED OFF TO ONCOMING RN.
[2021-02-16 03:48] LABS: BASOPHILS ABSOLUTE AUTO 0.06 K/mm3 (0.00-0.23); BASOPHILS PERCENT AUTO 0 % (0-2); EOSINOPHILS ABSOLUTE AUTO 0.12 K/mm3 (0.00-0.68); EOSINOPHILS PERCENT AUTO 1 % (0-6); Hematocrit 38.5 % (37.0-53.0); Hemoglobin 12.7 g/dL (13.5-17.5); IMMATURE GRAN ABSOLUTE AUTO 0.13 K/mm3 (0.00-0.10); IMMATURE GRAN PERCENT AUTO 1 % (0-1); LYMPHOCYTES ABSOLUTE AUTO 1.16 K/mm3 (0.84-5.20); LYMPHOCYTES PERCENT AUTO 7 % (21-46); MONOCYTES ABSOLUTE AUTO 0.93 K/mm3 (0.16-1.47); MONOCYTES PERCENT AUTO 6 % (4-13); Mean Corpuscular HGB 30.5 pg (26.0-34.0); Mean Corpuscular Volume 93 fL (80-100); Mean Platelet Volume 11.3 fL (9.1-12.4); NEUTROPHILS ABSOLUTE AUTO 13.31 K/mm3 (1.96-9.15); NEUTROPHILS PERCENT AUTO 85 % (41-73); Platelet Count 264 K/mm3 (150-400); RDW Coefficient Variation 12.6 % (11.7-14.2); RDW Standard Deviation 42.8 fL (35.1-46.3); Red Blood Cell Count 4.16 M/mm3 (4.30-5.90); White Blood Cell Count 15.71 K/mm3 (4.00-11.30)
[2021-02-16 04:18] LABS: Alanine Aminotransfer (ALT/SGP 19 U/L (12-78); Albumin, Blood 2.1 g/dL (3.4-5.0); Albumin/Globulin Ratio 0.6 (0.8-1.8); Alk Phos 48 U/L (50-136); Anion Gap 7 mmol/L (6-16); Aspartate Aminotrans (AST/SGOT 10 U/L (12-37); Bilirubin, Total 0.6 mg/dL (0.1-1.0); Blood Urea Nitrogen 17 mg/dL (8-24); Bun/Creatinine Ratio 18.6 (12.0-20.0); CO2, Blood 23 mmol/L (21-32); Calcium, Blood 7.9 mg/dL (8.5-10.1); Chloride, Blood 112 mmol/L (98-108); Creatinine, Blood 0.92 mg/dL (0.60-1.20); Globulin, Blood 3.8 g/dL (2.2-4.0); Glomerular Filtration Rate >60 (60-); Glucose, Blood 161 mg/dL (70-99); Potassium, Blood 3.8 mmol/L (3.5-5.5); Sodium, Blood 142 mmol/L (136-145); Total Protein, Blood 5.9 g/dL (6.4-8.2); Troponin I <0.015 ng/mL (0.000-0.040)
--- NOTE | 2021-02-16 05:58 | NUR ---
SHIFT SUMMARY ASSUMED CARE OF PT AT 1900. PT IS A/OX4. HEART SOUNDS IRREGULAR, TELE SHOWS AFLUTTER. PT HR HAS BEEN BETWEEN 120-150 T/O THE SHIFT. AFTER GIVING SCHEDULED LOPRESSER, PT HR STAYED ELEVATED. PT C/O SOB EPISODES, USUALLY CORRELATED WITH INCREASED HR. HOSPITALIST CALLED AND ORDERED 10MG IV CARDEZIM WITH LITTLE EFFECTS. PT HR INCREASE TO 120S AGAIN AFTER 30 MIN. PT ABD IS LARGE AND DISTENDED, IT IS TENDER TO TOUCH. PT MAHENDRA DRAIN FILLS ABOUT EVERY HOUR, DRAINAGE IS BILE COLORED. NG SUCTION IS SHOWING DARK RED/BROWN DRAINAGE, LITTLE OUTPUT, ABOUT 100CC. J TUBE DRESSING CHANGED. PT HAS BEEN HAVING WATERY LOOSE BROWN DIARRHEA. PT URINE IS VERY DARK TRES, BLADDER SCAN POST VOID SHOWED 40CC OF URINE. PT BOTTOM AND KRISTINE ARE ARE DISCOLORED, CREAM AND POWDERS APPLIED. CALL LIGHT IN REACH, BED IN LOWEST POSITON.
--- NOTE | 2021-02-16 12:07 | NUR ---
Echocardiogram completed.
[2021-02-16 12:35] LABS: C DIFFICILE DNA NEGATIVE (Negative)
--- NOTE | 2021-02-16 18:24 | NUR ---
PT SUMMARY: PT NG TUBE WAS REMOVED FOR THE SHIFT, PT STARTED ON ICE CHIPS AND WATER DIET, PT WAS ABLE TO TOLERATE WELL. PT MAHENDRA DRAIN HAD 230MLS TOTAL OUTPUT FOR THE SHIFT. VITALS HRR AFLUTTER 100-140'S, PT STARTED ON DIG LOAD AND BETA BLOCKERS TO START ON PO TONIGHT. SATS ABOVE 94% ON RA, AFEBRILE. PAIN MEDS WAS GIVEN X1 BY THE END OF THE SHIFT FOR ABD PAIN AND WAS EFFECTIVE. PT HAD 2 SOFT STOOLS FOR THE SHIFT TESTED NEGATIVE FOR CDIFF. NO OTHER COMPLAINS. WAS IN TO VISIT, REPOSITIONED IN BED, ABLE TO MAKE NEEDS KNOWN, WILL MONITOR
--- NOTE | 2021-02-16 21:45 | NUR ---
PATIENT CONTINUES TO BE IN A.FIB WITH RVR IN THE 120'S. GIVEN SCHEDULED DOSE OF METOPROLOL AND PATIENT IS NOW SUSTAINING IN THE 90'S.
--- NOTE | 2021-02-17 02:51 | NUR ---
PATIENT SUSTAINING HR IN 120'S, GIVEN PRN DOSE OF METOPROLOL. REASSESSMENT SHOWS HR IN THE 90'S.
--- NOTE | 2021-02-17 02:55 | NUR ---
ASSUMED CARE AT 1900. PATIENT IS A/O*4. HEART SOUNDS IRREGULAR WITH A.FIB WITH RVR AVERAGING IN THE 120'S AT 1945. GIVEN SCHEDULED DOSE OF PO METOPROLOL, REASSESSMENT SHOWS HR IN THE 90'S. AT 0251 PATIENT WAS AVERAGING HR IN THE 120'S, PARAMETERS MET FOR PRN IV DOSE OF METOPROLOL. REASSESSMENT SHOWS HR IN THE 90'S. PATIENT CONTINUES TO BE SOB WITH EXERTION. MAHENDRA DRAIN EMPTIED AT 2150 WITH 125ML OF OUTPUT (GREEN, YELLOW LIQUID). MAHENDRA DRAIN DRESSING IS CLEAN, DRY AND INTACT. PATIENTS URINE IS A CONCENTRATED DEEP YELLOW/TRES COLOR, AND FECES REMAIN TO BE LIQUID CONSISTENCY. TURNING PATIENT Q2HR D/T REDENNING OF PERINEAL/BUTTOCKS AND CREAM APPLIED. CALL LIGHT REMAINS WITHIN REACH WITH BED IN ITS LOWEST POSITION.
[2021-02-17 08:37] LABS: BASOPHILS ABSOLUTE AUTO 0.03 K/mm3 (0.00-0.23); BASOPHILS PERCENT AUTO 0 % (0-2); EOSINOPHILS ABSOLUTE AUTO 0.15 K/mm3 (0.00-0.68); EOSINOPHILS PERCENT AUTO 2 % (0-6); Hematocrit 37.6 % (37.0-53.0); Hemoglobin 12.3 g/dL (13.5-17.5); IMMATURE GRAN ABSOLUTE AUTO 0.06 K/mm3 (0.00-0.10); IMMATURE GRAN PERCENT AUTO 1 % (0-1); LYMPHOCYTES ABSOLUTE AUTO 1.16 K/mm3 (0.84-5.20); LYMPHOCYTES PERCENT AUTO 13 % (21-46); MONOCYTES ABSOLUTE AUTO 0.62 K/mm3 (0.16-1.47); MONOCYTES PERCENT AUTO 7 % (4-13); Mean Corpuscular HGB 30.7 pg (26.0-34.0); Mean Corpuscular HGB Conc 32.7 g/dL (31.5-36.5); Mean Corpuscular Volume 94 fL (80-100); Mean Platelet Volume 11.7 fL (9.1-12.4); NEUTROPHILS PERCENT AUTO 78 % (41-73); Platelet Count 263 K/mm3 (150-400); RDW Coefficient Variation 12.1 % (11.7-14.2); RDW Standard Deviation 42.1 fL (35.1-46.3); Red Blood Cell Count 4.01 M/mm3 (4.30-5.90); White Blood Cell Count 9.22 K/mm3 (4.00-11.30)
[2021-02-17 08:42] LABS: Alanine Aminotransfer (ALT/SGP 15 U/L (12-78); Albumin, Blood 2.2 g/dL (3.4-5.0); Albumin/Globulin Ratio 0.5 (0.8-1.8); Alk Phos 54 U/L (50-136); Anion Gap 4 mmol/L (6-16); Aspartate Aminotrans (AST/SGOT 13 U/L (12-37); Bilirubin, Total 0.5 mg/dL (0.1-1.0); Blood Urea Nitrogen 15 mg/dL (8-24); Bun/Creatinine Ratio 17.6 (12.0-20.0); CO2, Blood 24 mmol/L (21-32); Calcium, Blood 8.4 mg/dL (8.5-10.1); Chloride, Blood 113 mmol/L (98-108); Creatinine, Blood 0.85 mg/dL (0.60-1.20); Globulin, Blood 4.3 g/dL (2.2-4.0); Glomerular Filtration Rate >60 (60-); Glucose, Blood 135 mg/dL (70-99); Magnesium, Blood 2.2 mg/dL (1.6-2.4); Potassium, Blood 3.7 mmol/L (3.5-5.5); Sodium, Blood 141 mmol/L (136-145); Total Protein, Blood 6.5 g/dL (6.4-8.2)
--- NOTE | 2021-02-17 15:06 | NUR ---
PT STATUS CHANGED TO SURGICAL WITH TELE. PT TRANSFERRED TO RM 231, ALL BELONGINGS SENT WITH PT. NO ACUTE CHANGE FOR THE SHIFT, VITALS HRR REMAINED AFLUTTER RATE CONTROLLED FOR THE SHIFT 70-90, PT DENIES CHEST PAIN/PRESSURE,SATS ABOVE 95% ON RA, AFEBRILE. MAHENDRA FRAIN HAD 20ML OUTPUT IN TOTAL. PT ADVANCED TO CLEAR LIQUID DIET THEN FULL LIQUID DIET DINNER TIME. PT TOLERATED CLEAR LIQUIDS, PT WAS ABLE TO AMBULATE TRANSFER VIA FWW WITH NO ISSUES, PT ACCOMPANIED BY PCT VIA WHEELCHAIR.
--- NOTE | 2021-02-17 15:16 | NUR ---
ARRIVED TO SURG FLOOR REPORT RECIEVED VIA RN PASCUAL. PT ARRIVED FROM U @ APPROX. 1455. PT ORIENTATED TO ROOM. HUMOLOG PLACED IN PT DRAWER. PT PROVIDED W/ UNSWEETENED ICED TEA. PT UP TO RESTROOM BEFORE RESTING IN BED. @ BEDSIDE. PT DENIES SOB, N/V. REPORTS TOLLERATING LIQUIDS WELL. MAHENDRA TO RLQ C/D/I. BOWEL SOUNDS PRESENT, LUNGS CLEAR, TELE IN PLACE TECH REPORTS NO CHANGES.
--- NOTE | 2021-02-17 18:22 | NUR ---
SUMMARY PT HAS BEEN RESTING IN BED SINCE TRANSFER TO UNIT. HAS BEEN @ BEDSIDE. PT REQUESTED NUTRIONALIST CONSULT REGARDING THE MIXED CARDIAC, RENAL, GOUT, AND DIABETIC DIET. SHE REQUESTED THAT SHE BE PRESENT DURING CONSULT. ORDER HAS BEEN SUBMITTED. PT TOLERATED FULL LIQUID DINNER. DENIES PAIN AND N/V.
--- NOTE | 2021-02-18 03:45 | NUR ---
SHIFT SUMMARY S/P POST OPERATIVE ILEUS, A/O X4, VSS, TOLERATING DIET, SBA TO BATHROOM, DENIES PAIN T/O SHIFT, BM THIS SHIFT. NO ACUTE EVENTS THIS SHIFT. CALL LIGHT IN REACH, WILL CTM AND REPORT TO DAY RN.
[2021-02-18 08:37] LABS: BASOPHILS ABSOLUTE AUTO 0.03 K/mm3 (0.00-0.23); BASOPHILS PERCENT AUTO 1 % (0-2); EOSINOPHILS ABSOLUTE AUTO 0.11 K/mm3 (0.00-0.68); EOSINOPHILS PERCENT AUTO 2 % (0-6); Hematocrit 36.5 % (37.0-53.0); IMMATURE GRAN ABSOLUTE AUTO 0.04 K/mm3 (0.00-0.10); IMMATURE GRAN PERCENT AUTO 1 % (0-1); LYMPHOCYTES ABSOLUTE AUTO 1.15 K/mm3 (0.84-5.20); LYMPHOCYTES PERCENT AUTO 19 % (21-46); MONOCYTES ABSOLUTE AUTO 0.55 K/mm3 (0.16-1.47); MONOCYTES PERCENT AUTO 9 % (4-13); Mean Corpuscular HGB 30.5 pg (26.0-34.0); Mean Corpuscular HGB Conc 32.9 g/dL (31.5-36.5); Mean Corpuscular Volume 93 fL (80-100); Mean Platelet Volume 11.1 fL (9.1-12.4); NEUTROPHILS ABSOLUTE AUTO 4.21 K/mm3 (1.96-9.15); NEUTROPHILS PERCENT AUTO 69 % (41-73); Platelet Count 243 K/mm3 (150-400); RDW Coefficient Variation 11.9 % (11.7-14.2); Red Blood Cell Count 3.94 M/mm3 (4.30-5.90); White Blood Cell Count 6.09 K/mm3 (4.00-11.30)
[2021-02-18 08:57] LABS: Alanine Aminotransfer (ALT/SGP 21 U/L (12-78); Albumin/Globulin Ratio 0.4 (0.8-1.8); Alk Phos 54 U/L (50-136); Anion Gap 6 mmol/L (6-16); Aspartate Aminotrans (AST/SGOT 19 U/L (12-37); Bilirubin, Total 0.4 mg/dL (0.1-1.0); Blood Urea Nitrogen 12 mg/dL (8-24); Bun/Creatinine Ratio 14.3 (12.0-20.0); CO2, Blood 23 mmol/L (21-32); Calcium, Blood 7.9 mg/dL (8.5-10.1); Chloride, Blood 113 mmol/L (98-108); Creatinine, Blood 0.84 mg/dL (0.60-1.20); Globulin, Blood 4.5 g/dL (2.2-4.0); Glomerular Filtration Rate >60 (60-); Glucose, Blood 143 mg/dL (70-99); Potassium, Blood 3.6 mmol/L (3.5-5.5); Sodium, Blood 142 mmol/L (136-145); Total Protein, Blood 6.5 g/dL (6.4-8.2)
--- NOTE | 2021-02-18 10:11 | NUR ---
TELE REPORTED PT HAD [address] Dori HOWADR REVIEWED STRIP.
--- NOTE | 2021-02-18 10:36 | NUR ---
DR HOWARD IN TO SEE PT.
--- NOTE | 2021-02-18 12:02 | NUR ---
PT SITTING UP IN CHAIR. ADVISED TO TAKE LUNCH SLOWLY. DENIES ANY NEEDS AT THIS TIME.
[2021-02-18] MEDS ORDERED: MASOPHEN325 M3 PO (18:12)
[2021-02-18] MEDS ORDERED: METO50 PO (18:13)
[2021-02-18] MEDS ORDERED: AMOCLA875 PO (18:14)
--- NOTE | 2021-02-18 18:37 | NUR ---
DISCHARGED DC'D IVS, CATHETERS INTACT. REMOVED TELE AND RETURNED. REVIEWED DC INSTRUCTIONS;PT AND SPOUSE VERBALIZED UNDERSTANDING. PT LEFT UNIT IN WC W/POSSESSIONS AND DC PAPERWORK IN HAND.
== END 2021-02-18 18:35 | disposition home or self-care (01) | DRG 389 ==
LOC: ER 03:31 → ERHOLD 06:09 → PCU 06:09 → SURS 02-17 14:52
PROVIDERS: Emergency Medicine; Family Medicine; Internal Medicine; Surgery; ADMIT Internal Medicine
DX: K56.7 Ileus, unspecified (principal); I48.92 Unspecified atrial flutter; E87.2 Acidosis; Z20.822 Contact with and (suspected) exposure to COVID-19; K59.00 Constipation, unspecified; I48.91 Unspecified atrial fibrillation; J44.9 Chronic obstructive pulmonary disease, unspecified; N40.0 Benign prostatic hyperplasia without lower urinary tract symptoms; D64.9 Anemia, unspecified; E66.9 Obesity, unspecified; D72.829 Elevated white blood cell count, unspecified; E78.5 Hyperlipidemia, unspecified; E86.0 Dehydration; Z68.34 Body mass index [BMI] 34.0-34.9, adult; Z79.84 Long term (current) use of oral hypoglycemic drugs; Z79.899 Other long term (current) drug therapy; Z98.890 Other specified postprocedural states; Z87.891 Personal history of nicotine dependence; Z85.038 Personal history of other malignant neoplasm of large intestine; Z90.49 Acquired absence of other specified parts of digestive tract; Z79.82 Long term (current) use of aspirin
CPT/HCPCS: 36415; 71045; 74018; 74177; 80053; 80162; 82947; 83605; 83690; 83735; 83880; 84145; 84484; 85025; 87040; 87493; 93005; 93010; 93308; 93321; 94760; 96361; 96365-59; 96366; 96375; 99285-25; A9270; C9113; J1160; J1650; J2543; J3010; J7030; J7040; J7050; J7120; Q9967; U0004

== ENCOUNTER 2021-04-02 16:56 | Inpatient (IN) | payer OTHER ==
[~2021-04-02] VITALS: Ht 180.3 cm; Wt 112.5 kg
[~2021-04-02 16:56] MED LIST changes: -ELIQUIS5 M3 PO
[2021-04-02 18:26] LABS: BASOPHILS ABSOLUTE AUTO 0.02 K/mm3 (0.00-0.23); BASOPHILS PERCENT AUTO 0 % (0-2); EOSINOPHILS PERCENT AUTO 0 % (0-6); Hematocrit 42.4 % (37.0-53.0); Hemoglobin 14.1 g/dL (13.5-17.5); IMMATURE GRAN ABSOLUTE AUTO 0.05 K/mm3 (0.00-0.10); IMMATURE GRAN PERCENT AUTO 0 % (0-1); LYMPHOCYTES ABSOLUTE AUTO 1.67 K/mm3 (0.84-5.20); LYMPHOCYTES PERCENT AUTO 14 % (21-46); MONOCYTES ABSOLUTE AUTO 0.69 K/mm3 (0.16-1.47); MONOCYTES PERCENT AUTO 6 % (4-13); Mean Corpuscular HGB 29.9 pg (26.0-34.0); Mean Corpuscular HGB Conc 33.3 g/dL (31.5-36.5); Mean Corpuscular Volume 90 fL (80-100); Mean Platelet Volume 11.2 fL (9.1-12.4); NEUTROPHILS PERCENT AUTO 79 % (41-73); Platelet Count 238 K/mm3 (150-400); RDW Coefficient Variation 12.4 % (11.7-14.2); RDW Standard Deviation 40.8 fL (35.1-46.3); Red Blood Cell Count 4.72 M/mm3 (4.30-5.90); White Blood Cell Count 11.73 K/mm3 (4.00-11.30)
[2021-04-02 18:51] LABS: Amylase, Blood 23 U/L (25-115); Troponin I <0.015 ng/mL (0.000-0.040)
[2021-04-02 18:52] LABS: Alanine Aminotransfer (ALT/SGP 20 U/L (12-78); Albumin, Blood 3.6 g/dL (3.4-5.0); Albumin/Globulin Ratio 0.8 (0.8-1.8); Alk Phos 55 U/L (50-136); Anion Gap 8 mmol/L (6-16); Aspartate Aminotrans (AST/SGOT 16 U/L (12-37); Bilirubin, Total 1.2 mg/dL (0.1-1.0); Blood Urea Nitrogen 13 mg/dL (8-24); Bun/Creatinine Ratio 17.1 (12.0-20.0); CO2, Blood 21 mmol/L (21-32); Calcium, Blood 9.8 mg/dL (8.5-10.1); Chloride, Blood 108 mmol/L (98-108); Creatinine, Blood 0.76 mg/dL (0.60-1.20); Globulin, Blood 4.8 g/dL (2.2-4.0); Glomerular Filtration Rate >60 (60-); Glucose, Blood 170 mg/dL (70-99); Potassium, Blood 4.1 mmol/L (3.5-5.5); Sodium, Blood 137 mmol/L (136-145); Total Protein, Blood 8.4 g/dL (6.4-8.2)
[2021-04-02 18:54] LABS: International Normalized Ratio 1.14; Prothrombin Time Results 12.2 Sec (9.7-11.5)
[2021-04-02 20:38] LABS: SARS-Cov-2 (COVID-19) PCR, MMC NEGATIVE (NEGATIVE)
[2021-04-02 20:46] LABS: Source, Urine Catheter
[2021-04-02 20:48] LABS: Appearance, Urine Clear (Clear); Bilirubin, Urine Neg (Neg); Blood, Urine 5+ (Neg); Color, Urine Amber (P-Yellow); Glucose Qualitative, Urine Neg (Neg); Ketones, Urine 1+ (Neg); Leukocyte Esterase, Urine 1+ (Neg); Nitrite, Urine Neg (Neg); Protein, Urine 3+ (Neg); Specific Gravity, Urine 1.015 (1.003-1.022); Urobilinogen, Urine NORM (Normal)
[2021-04-02 20:58] LABS: White Blood Cells, Urine 0-2 /hpf (0-5)
[2021-04-02 20:59] LABS: Bacteria Few /hpf; Squamous Epithelial Cells Not Seen /hpf (Few)
--- NOTE | 2021-04-02 22:56 | NUR ---
ARRIVED FROM ED AT 2152 VIA STRETCHER. PT ALERT AND ORIENTED X2-3. FORGETFUL. MAY BE RELATED TO SEPSIS ACCORDING TO REPORT FROM KEKE LEE IN ED. FEBRILE. TEMP AT 101.8. MILD HTN. LOPRESSOR PO WAS GIVEN (NIGHT MEDS). FLUIDS INFUSING ON 100 ML/HR. PT ABLE TO STATE NAME AND DATE OF AND 'S NAME. UNSURE OF LOCATION. EASILY REORIENT. PLEASANT AND COOPERATIVE WITH CARE. PT APPEARS SHAKY. REPORTS PAIN BUT UNABLE TO USE PAIN SCALE. MEDICATED WITH 12.5 FENTANYL. TELE IN PLACED PER OCTOBER SINUS AT 89. PT IS NPO. BED ALARM IN ON. CALL LIGHT WITHIN REACH. WILL CONTINUE TO MONITOR PATIENT.
[2021-04-03 04:12] LABS: BASOPHILS ABSOLUTE AUTO 0.02 K/mm3 (0.00-0.23); BASOPHILS PERCENT AUTO 0 % (0-2); EOSINOPHILS PERCENT AUTO 0 % (0-6); Hematocrit 37.8 % (37.0-53.0); Hemoglobin 12.3 g/dL (13.5-17.5); IMMATURE GRAN ABSOLUTE AUTO 0.05 K/mm3 (0.00-0.10); IMMATURE GRAN PERCENT AUTO 1 % (0-1); LYMPHOCYTES ABSOLUTE AUTO 1.12 K/mm3 (0.84-5.20); LYMPHOCYTES PERCENT AUTO 10 % (21-46); MONOCYTES ABSOLUTE AUTO 0.44 K/mm3 (0.16-1.47); MONOCYTES PERCENT AUTO 4 % (4-13); Mean Corpuscular HGB 29.6 pg (26.0-34.0); Mean Corpuscular HGB Conc 32.5 g/dL (31.5-36.5); Mean Corpuscular Volume 91 fL (80-100); Mean Platelet Volume 11.1 fL (9.1-12.4); NEUTROPHILS PERCENT AUTO 85 % (41-73); Platelet Count 184 K/mm3 (150-400); RDW Coefficient Variation 12.6 % (11.7-14.2); RDW Standard Deviation 41.7 fL (35.1-46.3); Red Blood Cell Count 4.16 M/mm3 (4.30-5.90); White Blood Cell Count 11.03 K/mm3 (4.00-11.30)
[2021-04-03 04:32] LABS: Alanine Aminotransfer (ALT/SGP 12 U/L (12-78); Albumin, Blood 2.7 g/dL (3.4-5.0); Albumin/Globulin Ratio 0.6 (0.8-1.8); Alk Phos 43 U/L (50-136); Anion Gap 7 mmol/L (6-16); Aspartate Aminotrans (AST/SGOT 11 U/L (12-37); Bilirubin, Total 1.1 mg/dL (0.1-1.0); Blood Urea Nitrogen 14 mg/dL (8-24); Bun/Creatinine Ratio 18.1 (12.0-20.0); CO2, Blood 23 mmol/L (21-32); Calcium, Blood 8.7 mg/dL (8.5-10.1); Chloride, Blood 109 mmol/L (98-108); Creatinine, Blood 0.77 mg/dL (0.60-1.20); Globulin, Blood 4.2 g/dL (2.2-4.0); Glomerular Filtration Rate >60 (60-); Glucose, Blood 156 mg/dL (70-99); Potassium, Blood 3.7 mmol/L (3.5-5.5); Sodium, Blood 139 mmol/L (136-145); Total Protein, Blood 6.9 g/dL (6.4-8.2)
--- NOTE | 2021-04-03 04:55 | NUR ---
SHIFT SUMMARY PT ALERT ORIENTED X2-3, SLOW TO RESPOND AND FORGETFUL. PT ABLE TO PROVIDE LOCATION THIS MORNING. MENTATION HAS IMPROVED. HE SLEPT GOOD OVERNIGHT. HE CAN'T DESCRIBE PAIN USING NUMERIC PAIN SCALE BUT WOULD MOAN AND WILL APPEAR OF HAVING RESTLESSNESS. PAIN MANAGED WITH FENTANYL X2 T/O SHIFT. PT IS NPO. DENIES NAUSEA AND VOMITING. LACTIC ACID DID NOT IMPROVED FROM 2.[address] ALFREDO NOTIFIED. ADVISED TO CONTINUE FLUIDS AND MONITOR PT'S VITALS. ABX ALSO ADMINISTERED. VSS, THEY HAVE IMPROVED. TEMP FROM 101.8 TO 99.4 THIS MORNING. BP ALSO IMPROVED. PT ON TELE, SINUS AT 80'S, DENIES CHEST PAIN AND SOB. PT APPEARS TO HAVE SOME ABD DISTENTION. BOWEL TONES PRESENT, HYPOACTIVE. SCD'S IN PLACE. CALL LIGHT WITHIN REACH. WILL PROVIDE REPORT TO ONCOMING NURSE.
[2021-04-03] MEDS ORDERED: ELIQUIS5 M3 PO (15:13)
--- NOTE | 2021-04-03 17:11 | NUR ---
SHIFT SUMMARY PT A&OX2-3, MILD CONFUSION/REORIENTS EASILY - CONFIRMED WITH THIS IS PT BASELINE. VSS, TEMP 101.2 AT 1700 TREATED WITH TYLENOL. CBGS CNI. TELE SINUS @ 93 BPM. PAIN MANAGED WITH 5 OXY ALTERNATE WITH 5 NORCO AND 650 MG TYLENOL. IVF @ 100 MLS/HR AND ABX SCHEDULED. ROMMEL PO INTAKE. INCONTINENT, ATTENDS ON, VOIDING AND BM TODAY. PLAN FOR HYDA SCAN ON MONDAY. WILL REPORT TO ONCOMING NOC RN.
[2021-04-04 04:31] LABS: BASOPHILS ABSOLUTE AUTO 0.01 K/mm3 (0.00-0.23); BASOPHILS PERCENT AUTO 0 % (0-2); EOSINOPHILS ABSOLUTE AUTO 0.01 K/mm3 (0.00-0.68); EOSINOPHILS PERCENT AUTO 0 % (0-6); Hemoglobin 11.6 g/dL (13.5-17.5); IMMATURE GRAN ABSOLUTE AUTO 0.06 K/mm3 (0.00-0.10); IMMATURE GRAN PERCENT AUTO 1 % (0-1); LYMPHOCYTES ABSOLUTE AUTO 1.01 K/mm3 (0.84-5.20); LYMPHOCYTES PERCENT AUTO 11 % (21-46); MONOCYTES ABSOLUTE AUTO 0.45 K/mm3 (0.16-1.47); MONOCYTES PERCENT AUTO 5 % (4-13); Mean Corpuscular HGB 29.8 pg (26.0-34.0); Mean Corpuscular HGB Conc 32.2 g/dL (31.5-36.5); Mean Corpuscular Volume 93 fL (80-100); Mean Platelet Volume 11.3 fL (9.1-12.4); NEUTROPHILS ABSOLUTE AUTO 7.51 K/mm3 (1.96-9.15); NEUTROPHILS PERCENT AUTO 83 % (41-73); Platelet Count 146 K/mm3 (150-400); RDW Coefficient Variation 12.7 % (11.7-14.2); RDW Standard Deviation 42.9 fL (35.1-46.3); Red Blood Cell Count 3.89 M/mm3 (4.30-5.90); White Blood Cell Count 9.05 K/mm3 (4.00-11.30)
[2021-04-04 04:55] LABS: Alanine Aminotransfer (ALT/SGP 15 U/L (12-78); Albumin, Blood 2.4 g/dL (3.4-5.0); Albumin/Globulin Ratio 0.6 (0.8-1.8); Alk Phos 42 U/L (50-136); Anion Gap 5 mmol/L (6-16); Aspartate Aminotrans (AST/SGOT 8 U/L (12-37); Bilirubin, Total 0.8 mg/dL (0.1-1.0); Blood Urea Nitrogen 16 mg/dL (8-24); Bun/Creatinine Ratio 18.8 (12.0-20.0); CO2, Blood 24 mmol/L (21-32); Calcium, Blood 8.4 mg/dL (8.5-10.1); Chloride, Blood 112 mmol/L (98-108); Creatinine, Blood 0.85 mg/dL (0.60-1.20); Globulin, Blood 4.3 g/dL (2.2-4.0); Glomerular Filtration Rate >60 (60-); Glucose, Blood 130 mg/dL (70-99); Magnesium, Blood 2.1 mg/dL (1.6-2.4); Phosphorus, Blood 2.7 mg/dL (2.5-4.9); Potassium, Blood 3.6 mmol/L (3.5-5.5); Sodium, Blood 141 mmol/L (136-145); Total Protein, Blood 6.7 g/dL (6.4-8.2)
--- NOTE | 2021-04-04 06:55 | NUR ---
SHIFT SUMMARY S/P ABD FLUID COLLECTION AND SEPSIS, NON SURGICAL AT THIS TIME, A/O X4, SLOW TO RESPOND BUT ANSWERS ARE APPROPRIATE, HESITATES WITH SOME QUESTIONS TAKING LONGER TO ANSWER, DOES NOT CALL FOR PAIN BUT WAS ABLE TO USE FACE SCALE, PAIN MANAGED PER EMAR. VOIDING INCONTINANTLY, BM THIS SHIFT. NO ACUTE EVENTS THIS SHIFT. CALL LIGHT IN REACH, WILL CTM AND REPORT TO DAY RN.
--- NOTE | 2021-04-04 18:00 | NUR ---
PATIENT HAD A GOOD DAY TODAY. NO SIGNS OR SYMPTOMS ACUTE DISTRESS NOTED. CALL LIGHT AND WATER IN EASY REACH. ABLE TO MAKE NEEDS AND WANTS KNOWN. NO COMPLAINTS OF ABD PAIN OR NAUSEA. WILL MONITOR.
[2021-04-05 04:11] LABS: BASOPHILS ABSOLUTE AUTO 0.01 K/mm3 (0.00-0.23); BASOPHILS PERCENT AUTO 0 % (0-2); EOSINOPHILS ABSOLUTE AUTO 0.04 K/mm3 (0.00-0.68); EOSINOPHILS PERCENT AUTO 1 % (0-6); Hematocrit 33.1 % (37.0-53.0); Hemoglobin 10.9 g/dL (13.5-17.5); IMMATURE GRAN ABSOLUTE AUTO 0.03 K/mm3 (0.00-0.10); IMMATURE GRAN PERCENT AUTO 1 % (0-1); LYMPHOCYTES ABSOLUTE AUTO 0.97 K/mm3 (0.84-5.20); LYMPHOCYTES PERCENT AUTO 16 % (21-46); MONOCYTES ABSOLUTE AUTO 0.42 K/mm3 (0.16-1.47); MONOCYTES PERCENT AUTO 7 % (4-13); Mean Corpuscular HGB 29.9 pg (26.0-34.0); Mean Corpuscular HGB Conc 32.9 g/dL (31.5-36.5); Mean Corpuscular Volume 91 fL (80-100); Mean Platelet Volume 11.9 fL (9.1-12.4); NEUTROPHILS ABSOLUTE AUTO 4.69 K/mm3 (1.96-9.15); NEUTROPHILS PERCENT AUTO 76 % (41-73); Platelet Count 140 K/mm3 (150-400); RDW Coefficient Variation 12.6 % (11.7-14.2); RDW Standard Deviation 41.8 fL (35.1-46.3); Red Blood Cell Count 3.64 M/mm3 (4.30-5.90); White Blood Cell Count 6.16 K/mm3 (4.00-11.30)
[2021-04-05 04:29] LABS: Alanine Aminotransfer (ALT/SGP 15 U/L (12-78); Albumin/Globulin Ratio 0.5 (0.8-1.8); Alk Phos 88 U/L (50-136); Anion Gap 6 mmol/L (6-16); Aspartate Aminotrans (AST/SGOT 13 U/L (12-37); Bilirubin, Total 0.7 mg/dL (0.1-1.0); Blood Urea Nitrogen 15 mg/dL (8-24); Bun/Creatinine Ratio 18.9 (12.0-20.0); CO2, Blood 23 mmol/L (21-32); Calcium, Blood 8.5 mg/dL (8.5-10.1); Chloride, Blood 112 mmol/L (98-108); Creatinine, Blood 0.79 mg/dL (0.60-1.20); Globulin, Blood 4.4 g/dL (2.2-4.0); Glomerular Filtration Rate >60 (60-); Glucose, Blood 137 mg/dL (70-99); Magnesium, Blood 2.2 mg/dL (1.6-2.4); Potassium, Blood 3.3 mmol/L (3.5-5.5); Sodium, Blood 141 mmol/L (136-145); Total Protein, Blood 6.4 g/dL (6.4-8.2)
--- NOTE | 2021-04-05 06:13 | NUR ---
PT IS A/OX2-3, FORGETFUL. ABLE TO MAKE HIS NEEDS KNOWN. HE IS CHEESH-NA, HAS HEARING AIDS. NO EVENTS OVER NIGHT. TELE: SR. NO CHEST PAIN/PRESSURE/PALPITATIONS. NPO SINCE MN FOR HIDA SCAN TODAY. OXYGEN AT 1L PER NC. WEARS DISPOSABLE ADULT BRIEFS FOR B/B INCONTINCENCE, BUT ALSO USES BED SÁNCHEZ. PIV TO RFA PATENT, IVF AND IV ABX.
--- NOTE | 2021-04-05 17:37 | NUR ---
PATIENT CURRENTLY SITTING UP IN BED EATING DINNER. ABLE TO FEED SELF WITH NO ISSUES. CALL LIGHT AND WATER IN EASY REACH. ABLE TO MAKE NEEDS AND WANTS KNOWN. ALERT AND ORIENTED X 4, PATIENT IS HARD OF HEARING AND WEARS HEARING AIDES. PATIENT WORKED WITH PT AND OT TODAY, TOLERATED WELL. SAT UP IN CHAIR FOR A WHILE AND ALSO TOLERATED WELL. NO SIGNS OR SYMPTOMS ACUTE DISTRESS NOTED. WILL MONITOR.
[2021-04-06 04:25] LABS: BASOPHILS ABSOLUTE AUTO 0.01 K/mm3 (0.00-0.23); BASOPHILS PERCENT AUTO 0 % (0-2); EOSINOPHILS PERCENT AUTO 2 % (0-6); Hematocrit 32.9 % (37.0-53.0); Hemoglobin 10.6 g/dL (13.5-17.5); IMMATURE GRAN ABSOLUTE AUTO 0.01 K/mm3 (0.00-0.10); IMMATURE GRAN PERCENT AUTO 0 % (0-1); LYMPHOCYTES ABSOLUTE AUTO 0.83 K/mm3 (0.84-5.20); LYMPHOCYTES PERCENT AUTO 18 % (21-46); MONOCYTES ABSOLUTE AUTO 0.44 K/mm3 (0.16-1.47); MONOCYTES PERCENT AUTO 9 % (4-13); Mean Corpuscular HGB 29.2 pg (26.0-34.0); Mean Corpuscular HGB Conc 32.2 g/dL (31.5-36.5); Mean Corpuscular Volume 91 fL (80-100); Mean Platelet Volume 11.6 fL (9.1-12.4); NEUTROPHILS ABSOLUTE AUTO 3.36 K/mm3 (1.96-9.15); NEUTROPHILS PERCENT AUTO 71 % (41-73); Platelet Count 146 K/mm3 (150-400); RDW Coefficient Variation 12.6 % (11.7-14.2); RDW Standard Deviation 41.8 fL (35.1-46.3); Red Blood Cell Count 3.63 M/mm3 (4.30-5.90); White Blood Cell Count 4.75 K/mm3 (4.00-11.30)
[2021-04-06 04:48] LABS: Alanine Aminotransfer (ALT/SGP 23 U/L (12-78); Albumin/Globulin Ratio 0.5 (0.8-1.8); Alk Phos 47 U/L (50-136); Anion Gap 7 mmol/L (6-16); Aspartate Aminotrans (AST/SGOT 26 U/L (12-37); Bilirubin, Total 0.6 mg/dL (0.1-1.0); Blood Urea Nitrogen 16 mg/dL (8-24); Bun/Creatinine Ratio 21.5 (12.0-20.0); CO2, Blood 24 mmol/L (21-32); Calcium, Blood 8.6 mg/dL (8.5-10.1); Chloride, Blood 112 mmol/L (98-108); Creatinine, Blood 0.75 mg/dL (0.60-1.20); Globulin, Blood 4.4 g/dL (2.2-4.0); Glomerular Filtration Rate >60 (60-); Glucose, Blood 138 mg/dL (70-99); Magnesium, Blood 2.2 mg/dL (1.6-2.4); Phosphorus, Blood 3.6 mg/dL (2.5-4.9); Sodium, Blood 143 mmol/L (136-145); Total Protein, Blood 6.4 g/dL (6.4-8.2)
--- NOTE | 2021-04-06 07:49 | NUR ---
SUMMARY ASSUMED CARE OF PT HAILEE. A/O REPORTS FEELING BETTER.NPO FOR POTENTIAL DRAIN PLACEMENT TODAY.
--- NOTE | 2021-04-06 17:48 | NUR ---
PATIENT ALERT AND ORIENTED X 3. ABLE TO MAKE NEEDS AND WANT KNOWN. CALL LIGHT AND WATER IN EASY REACH. PATIENT WENT DOWN FOR A DRAIN PLACEMENT WITH CT TODAY. HE ARRIVED BACK TO FLOOR ON STRETCHER, WAS ABLE TO STAND AND PIVOT BACK TO BED WITH MULTIPLE ASSIST AND WALKER. COMPLAINED OF PAIN SO HE WAS MEDICATED WITH OXY AT THAT TIME AND THE MED WAS EFFECTIVE. POTASSIUM WAS REPLACED TODAY. WORKED WITH PT AND OT AND TOLERATED WELL. NO SIGNS OR SYMPOTMS ACUTE DISTRESS NOTED AT THIS TIME. JAGRUTI ORTIZ.
[2021-04-07 04:21] LABS: BASOPHILS ABSOLUTE AUTO 0.01 K/mm3 (0.00-0.23); BASOPHILS PERCENT AUTO 0 % (0-2); EOSINOPHILS ABSOLUTE AUTO 0.14 K/mm3 (0.00-0.68); EOSINOPHILS PERCENT AUTO 3 % (0-6); Hematocrit 32.9 % (37.0-53.0); Hemoglobin 10.8 g/dL (13.5-17.5); IMMATURE GRAN ABSOLUTE AUTO 0.02 K/mm3 (0.00-0.10); IMMATURE GRAN PERCENT AUTO 0 % (0-1); LYMPHOCYTES ABSOLUTE AUTO 1.05 K/mm3 (0.84-5.20); LYMPHOCYTES PERCENT AUTO 19 % (21-46); MONOCYTES ABSOLUTE AUTO 0.48 K/mm3 (0.16-1.47); MONOCYTES PERCENT AUTO 9 % (4-13); Mean Corpuscular HGB 29.7 pg (26.0-34.0); Mean Corpuscular HGB Conc 32.8 g/dL (31.5-36.5); Mean Corpuscular Volume 90 fL (80-100); Mean Platelet Volume 11.6 fL (9.1-12.4); NEUTROPHILS ABSOLUTE AUTO 3.71 K/mm3 (1.96-9.15); NEUTROPHILS PERCENT AUTO 69 % (41-73); Platelet Count 148 K/mm3 (150-400); RDW Coefficient Variation 12.7 % (11.7-14.2); RDW Standard Deviation 41.6 fL (35.1-46.3); Red Blood Cell Count 3.64 M/mm3 (4.30-5.90); White Blood Cell Count 5.41 K/mm3 (4.00-11.30)
[2021-04-07 04:41] LABS: Alanine Aminotransfer (ALT/SGP 26 U/L (12-78); Albumin/Globulin Ratio 0.5 (0.8-1.8); Alk Phos 48 U/L (50-136); Anion Gap 6 mmol/L (6-16); Aspartate Aminotrans (AST/SGOT 19 U/L (12-37); Bilirubin, Total 0.4 mg/dL (0.1-1.0); Blood Urea Nitrogen 17 mg/dL (8-24); Bun/Creatinine Ratio 22.4 (12.0-20.0); CO2, Blood 25 mmol/L (21-32); Calcium, Blood 8.8 mg/dL (8.5-10.1); Chloride, Blood 111 mmol/L (98-108); Creatinine, Blood 0.76 mg/dL (0.60-1.20); Globulin, Blood 4.4 g/dL (2.2-4.0); Glomerular Filtration Rate >60 (60-); Glucose, Blood 135 mg/dL (70-99); Potassium, Blood 3.2 mmol/L (3.5-5.5); Sodium, Blood 142 mmol/L (136-145); Total Protein, Blood 6.4 g/dL (6.4-8.2)
--- NOTE | 2021-04-07 06:45 | NUR ---
PATIENT HAS AN UNEVENTFUL NIGHT. PATIENT SLEPT WELL DURING THE NIGHT. VITALS ARE STABLE AND THERE IS NO SIGNS OF DISTRESS. WILL CONTINUE TO MONITOR,
[2021-04-07] MEDS ORDERED: AMOCLA875 PO (16:19)
--- NOTE | 2021-04-07 17:25 | NUR ---
DISCHARGE PATIENT DISCHARGED IN STABLE CONDITION HOME; DC PAPERWORK AND INSTRUCTIONS GIVEN TO PATIENT AND , BOTH VERBALIZED UNDERSTANDING OF INSTRUCTIONS. PERIPHERAL IV REMOVEDL; ALL BELONGINGS PACKED AND SENT WITH PATIENT. PATIENT TAKEN DOWN TO FRONT LOBBY VIA WHEELCHAIR BY [employer]
--- NOTE | 2021-04-07 18:09 | NUR ---
Late ENTRY copied from [facility] EMR notes yesterday Update 04/06/21: Per chart review with Dr. Ramirez, pt. likely to discharge within the next 24-48 hours. Anticipate needs to include: Wheelchair, Xarelto/Elquis samples, hospital F/U appt. and GI F/U outpatient.
--- NOTE | 2021-04-07 18:10 | NUR ---
Update 04/07/21: Per chart review with Dr. Ramirez, pt. appropriate for discharge today. Wheelchair ordered and delivered to home yesterday. HH ordered through [facility]. Elayne working with family to schedule. Pt. requesting that [facility] team schedule hospital F/U at time of SOPHIA call so that his is available. Dr. Singleton has consulted [facility]. Pt. will F/U with GI outpatient at [facility]. Staff will contact patient's to schedule. Pt. denied any barriers to safety in the home. He is grateful for the wheelchair and agreeable to HH. Elayne will contact his Fang tomorrow to schedule. SOPHIA will call to check in within 24-48 hours.
== END 2021-04-07 17:36 | disposition home health service (06) | DRG 862 ==
LOC: ER 16:56 → SURS 21:28
PROVIDERS: Family Medicine; Physician Assistant; ADMIT Internal Medicine
PROC: 0W9D30Z Drainage of Pericardial Cavity with Drainage Device, Percutaneous Approach (ICD-10-PCS; principal; 2021-04-06)
DX: T81.43XA Infection following a procedure, organ and space surgical site, initial encounter (principal); A41.9 Sepsis, unspecified organism; K65.1 Peritoneal abscess; E87.2 Acidosis; Z20.822 Contact with and (suspected) exposure to COVID-19; Z68.32 Body mass index [BMI] 32.0-32.9, adult; E66.9 Obesity, unspecified; E11.9 Type 2 diabetes mellitus without complications; I48.91 Unspecified atrial fibrillation; E78.5 Hyperlipidemia, unspecified; N40.0 Benign prostatic hyperplasia without lower urinary tract symptoms; K21.9 Gastro-esophageal reflux disease without esophagitis; E87.6 Hypokalemia; J44.9 Chronic obstructive pulmonary disease, unspecified; Z79.84 Long term (current) use of oral hypoglycemic drugs; Z90.49 Acquired absence of other specified parts of digestive tract; Z79.899 Other long term (current) drug therapy; Z85.038 Personal history of other malignant neoplasm of large intestine; Z98.890 Other specified postprocedural states; Z87.891 Personal history of nicotine dependence; Y83.9 Surgical procedure, unspecified as the cause of abnormal reaction of the patient, or of later complication, without mention of misadventure at the time of the procedure
CPT/HCPCS: 36415; 49405; 78226; 80053; 81001; 82150; 82947; 83605; 83735; 83880; 84100; 84484; 85025; 85610; 85730; 87040; 87070; 87075; 87077; 87086; 87186; 87205; 88108; 88305; 93005; 93010; 94640; 94760; 96365; 97110; 97116; 97162; 97167; 97530; 97535; 99285-25; A9270; A9537; J1650; J1815; J2543; J3010; J3480; J7030; J7060; U0004

== ENCOUNTER → 2021-04-02 | Outpatient (CLI) | payer OTHER ==
[~2021-04-02] MED LIST changes: +AMOCLA875 PO; +ELIQUIS5 M3 PO; +MASOPHEN325 M3 PO; +METO50 PO
[2021-04-02 13:13] LABS: BASOPHILS ABSOLUTE AUTO 0.02 K/mm3 (0.00-0.23); BASOPHILS PERCENT AUTO 0 % (0-2); EOSINOPHILS PERCENT AUTO 0 % (0-6); Hematocrit 40.8 % (37.0-53.0); Hemoglobin 13.6 g/dL (13.5-17.5); IMMATURE GRAN ABSOLUTE AUTO 0.04 K/mm3 (0.00-0.10); IMMATURE GRAN PERCENT AUTO 0 % (0-1); LYMPHOCYTES ABSOLUTE AUTO 1.17 K/mm3 (0.84-5.20); LYMPHOCYTES PERCENT AUTO 12 % (21-46); MONOCYTES PERCENT AUTO 5 % (4-13); Mean Corpuscular HGB 30.2 pg (26.0-34.0); Mean Corpuscular HGB Conc 33.3 g/dL (31.5-36.5); Mean Corpuscular Volume 91 fL (80-100); NEUTROPHILS ABSOLUTE AUTO 8.16 K/mm3 (1.96-9.15); NEUTROPHILS PERCENT AUTO 83 % (41-73); Platelet Count 221 K/mm3 (150-400); RDW Coefficient Variation 12.6 % (11.7-14.2); RDW Standard Deviation 41.2 fL (35.1-46.3); Red Blood Cell Count 4.51 M/mm3 (4.30-5.90); White Blood Cell Count 9.89 K/mm3 (4.00-11.30)
[2021-04-02 13:24] LABS: Alanine Aminotransfer (ALT/SGP 22 U/L (12-78); Albumin, Blood 3.4 g/dL (3.4-5.0); Albumin/Globulin Ratio 0.7 (0.8-1.8); Alk Phos 54 U/L (40-126); Anion Gap 13 mmol/L (6-16); Aspartate Aminotrans (AST/SGOT 14 U/L (12-37); Bilirubin, Total 0.7 mg/dL (0.1-1.0); Blood Urea Nitrogen 13 mg/dL (8-24); Bun/Creatinine Ratio 12.6 (12.0-20.0); CO2, Blood 24 mmol/L (21-32); Calcium, Blood 9.4 mg/dL (8.5-10.1); Chloride, Blood 106 mmol/L (98-108); Creatinine, Blood 1.03 mg/dL (0.60-1.20); Globulin, Blood 4.7 g/dL (2.2-4.0); Glomerular Filtration Rate >60 (60-); Glucose, Blood 136 mg/dL (70-99); Potassium, Blood 4.2 mmol/L (3.5-5.5); Sodium, Blood 143 mmol/L (136-145); Total Protein, Blood 8.1 g/dL (6.4-8.2)
[2021-04-02 13:29] LABS: Troponin I <0.017 ng/mL (0.000-0.040)
== END | disposition home or self-care (01) ==
LOC: LAB SHORT 13:05
PROVIDERS: Physician Assistant Surgical
DX: R10.9 Unspecified abdominal pain (principal)
CPT/HCPCS: 80053; 83690; 84484; 85025

== ENCOUNTER → 2021-04-19 | Outpatient (CLI) | payer OTHER ==
[~2021-04-19] MED LIST changes: +ELIQUIS5 M3 PO
[2021-04-21 17:44] LABS: CORONAVIRUS (COVID19) CSH-NRL Negative (Negative)
== END | disposition home or self-care (01) ==
LOC: LAB SHORT 14:24
PROVIDERS: Physician Assistant
DX: Z01.812 Encounter for preprocedural laboratory examination (principal); Z20.822 Contact with and (suspected) exposure to COVID-19
CPT/HCPCS: U0003

== ENCOUNTER 2024-04-30 16:51 | Inpatient (IN) | payer OTHER ==
[~2024-04-30] VITALS: Ht 180.3 cm; Wt 114.0 kg
[~2024-04-30 16:51] MED LIST changes: -METO50 PO; +METO50ER PO
[2024-04-30] MEDS ORDERED: Acetaminophen 500 MG Tab PO ONE (17:05)
[2024-04-30 17:33] LABS: BASOPHILS ABSOLUTE AUTO 0.02 K/mm3 (0.00-0.23); BASOPHILS PERCENT AUTO 0 % (0-2); EOSINOPHILS ABSOLUTE AUTO 0.03 K/mm3 (0.00-0.68); EOSINOPHILS PERCENT AUTO 1 % (0-6); Hematocrit 39.3 % (37.0-53.0); Hemoglobin 13.5 g/dL (13.5-17.5); IMMATURE GRAN ABSOLUTE AUTO 0.03 K/mm3 (0.00-0.10); IMMATURE GRAN PERCENT AUTO 1 % (0-1); LYMPHOCYTES ABSOLUTE AUTO 0.52 K/mm3 (0.84-5.20); LYMPHOCYTES PERCENT AUTO 8 % (21-46); MONOCYTES ABSOLUTE AUTO 0.56 K/mm3 (0.16-1.47); MONOCYTES PERCENT AUTO 9 % (4-13); Mean Corpuscular HGB 31.8 pg (26.0-34.0); Mean Corpuscular HGB Conc 34.4 g/dL (31.5-36.5); Mean Corpuscular Volume 93 fL (80-100); NEUTROPHILS ABSOLUTE AUTO 5.39 K/mm3 (1.96-9.15); NEUTROPHILS PERCENT AUTO 82 % (41-73); Platelet Count 142 K/mm3 (150-400); RDW Coefficient Variation 12.1 % (11.7-14.2); RDW Standard Deviation 41.1 fL (35.1-46.3); Red Blood Cell Count 4.24 M/mm3 (4.30-5.90); White Blood Cell Count 6.55 K/mm3 (4.00-11.30)
[2024-04-30 17:42] LABS: Albumin, Blood 3.4 g/dL (3.4-5.0); Albumin/Globulin Ratio 0.9 (0.8-1.8); Bilirubin, Total 0.6 mg/dL (0.1-1.0); Bun/Creatinine Ratio 12.4 (12.0-20.0); Calcium, Blood 8.6 mg/dL (8.5-10.1); Creatinine, Blood 0.96 mg/dL (0.60-1.20); Globulin, Blood 3.6 g/dL (2.2-4.0); Potassium, Blood 4.1 mmol/L (3.5-5.5)
[2024-04-30] MEDS ORDERED: ALLO300 PO (17:58)
[2024-04-30] MEDS ORDERED: COLCHICINE0.6 MG PO (17:59)
[2024-04-30] MEDS ORDERED: Lactated Ringer's 2,000 ML IV ONE (18:00)
[2024-04-30 18:03] LABS: Influenza A, PCR NEGATIVE (NEGATIVE); Influenza B, PCR NEGATIVE (NEGATIVE); Resp Syncytial Virus, PCR NEGATIVE (NEGATIVE)
[2024-04-30] MEDS ORDERED: Azithromycin 500 MG in NS 250 ML IV ONE (18:05)
[2024-04-30] MEDS ORDERED: CefTRIAXone Sodium 1,000 MG in NS 100 ML IV ONE (18:05)
[2024-04-30 18:48] LABS: Source, Urine Clean Catch
[2024-04-30 18:54] LABS: Appearance, Urine Clear (Clear); Bilirubin, Urine Neg (Neg); Blood, Urine 1+ (Neg); Color, Urine Yellow (P-Yellow); Glucose Qualitative, Urine Neg (Neg); Ketones, Urine 1+ (Neg); Leukocyte Esterase, Urine 2+ (Neg); Nitrite, Urine Neg (Neg); Protein, Urine 1+ (Neg); Urobilinogen, Urine NORM (Normal)
[2024-04-30 19:11] LABS: Bacteria Few /hpf; Red Blood Cells, Urine 0-2 /hpf (0-2); Squamous Epithelial Cells Not Seen /hpf (Few)
[2024-04-30] MEDS ORDERED: Ketorolac Tromethamine 15mg Vial IV ONE (20:00)
[2024-04-30 20:48] LABS: SARS-Cov-2 (COVID-19) PCR, MMC POSITIVE (NEGATIVE)
[2024-04-30] MEDS ORDERED: Ondansetron HCl 2 MG / ML 2ML Vial IV PRN (20:50)
[2024-04-30] MEDS ORDERED: Albuterol 2.5 MG/3 ML VIAL INH PRN (20:50)
[2024-04-30] MEDS ORDERED: FLU VACC TS2024-25(6MOS UP)/PF 45 MCG/0.5 ML SYRINGE IM SCH (20:55)
[2024-04-30] MEDS ORDERED: Ipratropium/Albuterol SulF 2.5-0.5MG/3 ML Amp INH SCH (20:55)
[2024-04-30] MEDS ORDERED: Lactated Ringer's 1,000 ML IV SCH (20:55)
[2024-04-30] MEDS ORDERED: Atorvastatin 10 MG Tab PO SCH (21:00)
[2024-04-30] MEDS ORDERED: Acetaminophen 500 MG Tab PO PRN (21:00)
[2024-04-30] MEDS ORDERED: Metoprolol Tartrate 25 MG Tab PO SCH (21:00)
[2024-04-30] MEDS ORDERED: Apixaban 5 MG Tab PO SCH (21:00)
[2024-04-30] MEDS ORDERED: Vancomycin HCL 2,000 MG in NS 500 ML IV ONE (21:25)
[2024-04-30 22:00] VITALS: BP 110/56
[2024-04-30] MEDS ORDERED: LATA.005SO BOTHEYES (22:04)
[2024-04-30] MEDS ORDERED: NS 250 ML IV PRN (22:25)
[2024-04-30 22:45] VITALS: BP 121/62
--- NOTE | 2024-04-30 23:00 | NUR ---
ARRIVAL TO PCU NOTE RECEIVED REPORT FROM [employer]ATION WORKER ROSHNI STACY, PT SHORTLY ARRIVED TO PCU 17 ACCOMPAINED BY HIS (MARJORIE) AND FAMILY FRIEND. PT TRANSFERRED FROM [facility] TO PCU BED VIA SLIDE SHEET. A/Ox3 AND COOPERATIVE WITH CARE. ABLE TO MAKE HIS NEEDS KNOWN BUT VERY [place]. PT POOR HISTORIAN, MOST ADMISSION QUESTIONS ANSWERED BY PT'S SPOUSE. CARDIAC, TELEMTRY SHOWS SR 80-90'S WITH NO REPORTS OF CP, PRESSURE OR DIZZINESS. SBP STABLE RANGING 110-120'S. RESPIRATORY, MAINTAINING SPO2 >92% ON RA WITH NO REPORTS OF SOB OR DYSPNEA AT REST. OCCASIONAL, WET COUGH NOTED WITH THICK SPUTUM PRODUCTION. LS CLEAR, BUT DIMINSHED IN THE BASES. REPORTS USE OF CPAP AT NIGHT. GI/, NOTICEABLE ABD DISTENTION NOTED. REPORTS HX OF ABD HERNIA REPAIR WITH MESH PLACEMENT WELL PARTIAL BOWEL REMOVAL IN THE PAST. BS PRESENT IN ALL QUADRANTS WITH NO REPORTS OF N/V/D OR ABD PAIN. DENIES ANY DIFFICULTY VOIDING OR PAINFUL URINATION. SKIN OVERALL VERY MOIST DUE TO SWEAT BUT C/I. SOME REDNESS NOTED ON COCCYX AREA, BUT BLANCHABLE TO PALPATION. 2xPIV NOTED (RAC + LFA), BOTH FLUSH WELL. WILL CONTINUE TO PROCCESS MD ORDERS. REESE GARCIA UPON ARRIVAL TO PCU.
[2024-05-01] MEDS ORDERED: 8 HOUR ACETAMI650 MG PO (01:01)
[2024-05-01] MEDS ORDERED: Vitamin D1000 UNI1 PO (01:03)
[2024-05-01] MEDS ORDERED: Apple Cider Vi300 MG PO (01:04)
[2024-05-01] MEDS ORDERED: NASACORT10.8 ML (01:05)
[2024-05-01] MEDS ORDERED: TRANSDERM-SCOP1 EA13 TD (01:07)
[2024-05-01 02:05] VITALS: BP 137/71
[2024-05-01 04:12] LABS: BASOPHILS ABSOLUTE AUTO 0.01 K/mm3 (0.00-0.23); BASOPHILS PERCENT AUTO 0 % (0-2); EOSINOPHILS ABSOLUTE AUTO 0.01 K/mm3 (0.00-0.68); EOSINOPHILS PERCENT AUTO 0 % (0-6); Hematocrit 36.4 % (37.0-53.0); Hemoglobin 12.4 g/dL (13.5-17.5); IMMATURE GRAN ABSOLUTE AUTO 0.02 K/mm3 (0.00-0.10); IMMATURE GRAN PERCENT AUTO 0 % (0-1); LYMPHOCYTES ABSOLUTE AUTO 0.83 K/mm3 (0.84-5.20); LYMPHOCYTES PERCENT AUTO 13 % (21-46); MONOCYTES ABSOLUTE AUTO 0.71 K/mm3 (0.16-1.47); MONOCYTES PERCENT AUTO 11 % (4-13); Mean Corpuscular HGB 31.5 pg (26.0-34.0); Mean Corpuscular HGB Conc 34.1 g/dL (31.5-36.5); Mean Corpuscular Volume 92 fL (80-100); Mean Platelet Volume 10.7 fL (9.1-12.4); NEUTROPHILS ABSOLUTE AUTO 4.71 K/mm3 (1.96-9.15); NEUTROPHILS PERCENT AUTO 75 % (41-73); Platelet Count 129 K/mm3 (150-400); RDW Coefficient Variation 12.2 % (11.7-14.2); RDW Standard Deviation 41.5 fL (35.1-46.3); Red Blood Cell Count 3.94 M/mm3 (4.30-5.90); White Blood Cell Count 6.29 K/mm3 (4.00-11.30)
[2024-05-01 04:33] LABS: Albumin/Globulin Ratio 0.9 (0.8-1.8); Bilirubin, Total 0.6 mg/dL (0.1-1.0); Bun/Creatinine Ratio 20.3 (12.0-20.0); Calcium, Blood 8.2 mg/dL (8.5-10.1); Creatinine, Blood 0.84 mg/dL (0.60-1.20); Globulin, Blood 3.3 g/dL (2.2-4.0); Magnesium, Blood 1.6 mg/dL (1.6-2.4); Total Protein, Blood 6.3 g/dL (6.4-8.2)
[2024-05-01 04:47] VITALS: BP 126/67
--- NOTE | 2024-05-01 05:25 | NUR ---
SHIFT SUMMARY MINOR CHANGES SINCE ARRIVAL TO PCU NOTE. SEE NOTE FOR DETAILS. PT ATTEMPTED TO USE HOSPITAL CPAP, BUT DID NOT USE IT FOR TOO LONG DUE TO IT BEING UNCOMFORTABLE. PT'S (MARJORIE) TO BRING IN HIS HOME CPAP TODAY. PT PLACED ON 1L NC WHEN ASLEEP TO MAINTAIN SPO2 >90%. PT'S SCROTUM NOTED TO HAVE BECOME MORE SWOLLEN IN SIZE SINCE ARRIVAL TO PCU. ENDORSES VERY MINOR TENDERNESS. DR. RAMÍREZ MADE AWARE. NO NEW ORDERS AT THIS TIME, WILL REPORT TO ONCOMING RN. REESE GARCIA OF THIS NOTE.
[2024-05-01] MEDS ORDERED: Pantoprazole Sodium 40 MG Tab PO SCH (06:00)
[2024-05-01] MEDS ORDERED: Insulin Human Lispro 100 Units/ML 3ML Syringe SC SCH (07:30)
[2024-05-01] MEDS ORDERED: Allopurinol 300 MG Tab PO SCH (09:00)
[2024-05-01] MEDS ORDERED: Tamsulosin HCl 0.4 MG Cap PO SCH (09:00)
[2024-05-01 09:08] VITALS: BP 120/58
[2024-05-01] MEDS ORDERED: BEVESPI AEROS10.7 G1 INH (10:14)
[2024-05-01] MEDS ORDERED: Vancomycin HCL 1,250 MG in NS 250 ML IV SCH (11:00)
--- NOTE | 2024-05-01 12:11 | NUR ---
ASSUMED CARE OF PT AT 0700 THIS AM. SEE DOCUMENTED VS AND ASSESSMENT. NO ACUTE EVENTS. MED REC COMPLETED BY THIS RN. PT'S AT BEDSIDE THIS AM, UPDATED ON CONDITION AND PLAN. PT STATUS HAS BEEN DOWNGRADED TO MEDICAL FLOOR W TELE, PT WILL BE MOVED TO NEW ROOM 313 WITH ALL BELONGINGS. REPORT GIVEN TO ACCEPTING RN.
[2024-05-01 15:11] VITALS: BP 133/69
[2024-05-01] MEDS ORDERED: GLYCOPYRROLATE FORMOTEROL INH SCH (16:30)
--- NOTE | 2024-05-01 17:09 | NUR ---
PT IS A TRANSFER FROM PCU. ALERT AND ORIENTED AND ABLE TO MAKE NEEDS KNOWN. 1 PERSON ASSIST TO BSC. DENIES CHEST PAIN OR PRESSURE, SOB WITH EXERTION. COOPERATIVE WITH CARES.
[2024-05-01] MEDS ORDERED: CefTRIAXone Sodium 1,000 MG in NS 100 ML IV SCH (18:00)
[2024-05-01] MEDS ORDERED: Azithromycin 500 MG in NS 250 ML IV SCH (18:00)
[2024-05-01 19:20] VITALS: BP 139/62
[2024-05-01] MEDS ORDERED: Lactobacil 2-S.Thermo-Bifido 1 1 Cap PO SCH (21:00)
[2024-05-01] MEDS ORDERED: Latanoprost 0.005% Opth Soln 2.5 ML LEFTEYE SCH (21:00)
--- NOTE | 2024-05-02 00:38 | NUR ---
SHIFT SUMMARY NOC PT A/O X 4. BAD [place] BAND, PLEASANT AND COOPERATIVE WITH CARE. PT FEBRILE DURING HS VS WITH TEMPERATURE 102.6F ORAL. DOSE OF TYLENOL GIVEN AND TEMPERATURE 99.1F UPON RECHECK. PT ON DROPLET ISOLATION FOR COVID 19. ON TELE SINUS RHYTHM IN 70'S. PT USING CPAP FOR SLEEP. PT CURRENTLY RESTING WITH BED IN LOWEST POSITION, AND CALL LIGHT WITHIN REACH.
[2024-05-02 04:06] VITALS: BP 105/53
[2024-05-02 05:07] LABS: BASOPHILS ABSOLUTE AUTO 0.01 K/mm3 (0.00-0.23); BASOPHILS PERCENT AUTO 0 % (0-2); EOSINOPHILS ABSOLUTE AUTO 0.06 K/mm3 (0.00-0.68); EOSINOPHILS PERCENT AUTO 1 % (0-6); Hematocrit 35.1 % (37.0-53.0); Hemoglobin 12.1 g/dL (13.5-17.5); IMMATURE GRAN ABSOLUTE AUTO 0.02 K/mm3 (0.00-0.10); IMMATURE GRAN PERCENT AUTO 0 % (0-1); LYMPHOCYTES ABSOLUTE AUTO 1.27 K/mm3 (0.84-5.20); LYMPHOCYTES PERCENT AUTO 23 % (21-46); MONOCYTES ABSOLUTE AUTO 0.73 K/mm3 (0.16-1.47); MONOCYTES PERCENT AUTO 13 % (4-13); Mean Corpuscular HGB 32.1 pg (26.0-34.0); Mean Corpuscular HGB Conc 34.5 g/dL (31.5-36.5); Mean Corpuscular Volume 93 fL (80-100); Mean Platelet Volume 10.7 fL (9.1-12.4); NEUTROPHILS ABSOLUTE AUTO 3.35 K/mm3 (1.96-9.15); NEUTROPHILS PERCENT AUTO 62 % (41-73); Platelet Count 117 K/mm3 (150-400); RDW Coefficient Variation 12.1 % (11.7-14.2); RDW Standard Deviation 41.3 fL (35.1-46.3); Red Blood Cell Count 3.77 M/mm3 (4.30-5.90); White Blood Cell Count 5.44 K/mm3 (4.00-11.30)
[2024-05-02 05:41] LABS: Bun/Creatinine Ratio 18.1 (12.0-20.0); Calcium, Blood 8.5 mg/dL (8.5-10.1); Creatinine, Blood 0.89 mg/dL (0.60-1.20); Potassium, Blood 3.8 mmol/L (3.5-5.5)
[2024-05-02 07:49] VITALS: BP 124/74
[2024-05-02 15:28] VITALS: BP 133/71
[2024-05-02] MEDS ORDERED: IPRAT-ALBUT 0.5-3 ML NEB (17:07)
[2024-05-02] MEDS ORDERED: PROBIOTIC1 EA14 PO (17:07)
[2024-05-02] MEDS ORDERED: SYSTANE BALANCE10 ML BOTHEYES (17:11)
[2024-05-02] MEDS ORDERED: PROSTATE HEALT1 EAC1 PO (17:12)
--- NOTE | 2024-05-02 17:48 | NUR ---
MET WITH PATIENT AND . PROVIDED COPY OF POLST AND DISCUSSED OPTION. AT THIS TIME ANJU WOULD LIKE TO REMAIN FULL CODE. WE DISCUSSED THE DIFFERENCE BETWEEN POLST AND AD. ASSISTED PATIENT TO THE RESTROOM AND DID A LINEN CHANGE. THEY WILL DISCUSS POLST WITH THEIR PRIMARY CARE PROVIDER TO COMPLETE
--- NOTE | 2024-05-02 19:27 | NUR ---
NO ACUTE CHANGES, PT ALERT AND ORIENTED X4, ABLE TO EXPRESS NEEDS, SBA TO BSC. R.A DURING THE DAY SHIFT. DENIES CHEST PAIN/ PRESSURE
[2024-05-02 19:51] VITALS: BP 140/71
[2024-05-03 04:12] VITALS: BP 123/63
[2024-05-03 05:49] LABS: BASOPHILS ABSOLUTE AUTO 0.01 K/mm3 (0.00-0.23); BASOPHILS PERCENT AUTO 0 % (0-2); EOSINOPHILS PERCENT AUTO 4 % (0-6); Hematocrit 37.3 % (37.0-53.0); Hemoglobin 12.7 g/dL (13.5-17.5); IMMATURE GRAN ABSOLUTE AUTO 0.01 K/mm3 (0.00-0.10); IMMATURE GRAN PERCENT AUTO 0 % (0-1); LYMPHOCYTES ABSOLUTE AUTO 1.06 K/mm3 (0.84-5.20); LYMPHOCYTES PERCENT AUTO 22 % (21-46); MONOCYTES ABSOLUTE AUTO 0.53 K/mm3 (0.16-1.47); MONOCYTES PERCENT AUTO 11 % (4-13); Mean Corpuscular HGB 31.8 pg (26.0-34.0); Mean Corpuscular Volume 94 fL (80-100); Mean Platelet Volume 10.8 fL (9.1-12.4); NEUTROPHILS ABSOLUTE AUTO 2.99 K/mm3 (1.96-9.15); NEUTROPHILS PERCENT AUTO 62 % (41-73); Platelet Count 123 K/mm3 (150-400); RDW Coefficient Variation 11.9 % (11.7-14.2); RDW Standard Deviation 41.3 fL (35.1-46.3); Red Blood Cell Count 3.99 M/mm3 (4.30-5.90)
--- NOTE | 2024-05-03 05:55 | NUR ---
SHIFT SUMMARY NOC PT A/O X 4. PLEASANT AND COOPERATIVE WITH CARE. VSS. NO ACUTE EVENTS TO REPORT. PT ON DROPLET ISOLATION FOR COVID 19, RECEIVING IVABX. PT ON TELE SINUS RHYTHM IN 70'S. WEARS CPAP FOR SLEEP. PUREWICK IN PLACE FOR URGENCY/FREQUENCY. PT HOPING TO DISCHARGE HOME TODAY. PT CURRENTLY RESTING WITH BED IN LOWEST POSITION, AND CALL LIGHT WITHIN REACH.
[2024-05-03 06:00] LABS: Bun/Creatinine Ratio 16.6 (12.0-20.0); Calcium, Blood 8.6 mg/dL (8.5-10.1); Creatinine, Blood 0.9 mg/dL (0.60-1.20); Potassium, Blood 3.8 mmol/L (3.5-5.5)
[2024-05-03 07:57] VITALS: BP 135/70
[2024-05-03] MEDS ORDERED: CEFP200 PO (12:10)
--- NOTE | 2024-05-03 12:32 | NUR ---
PT DISCHARGED HOME. SPOUSE AT BEDSIDE. DISCHARGE INSTRUCTIONS DISCUSSED WITH PT AND FAMILY MEMBER. EMPHASIZED IMPORTANCE OF TAKING MEDICATIONS PRESCRIBED AND FOLLOW UP WITH PCP WHEN SCHEDULED. NO QUESTIONS OR CONCERNS AT DISCHARGE
== END 2024-05-03 12:31 | disposition home or self-care (01) | DRG 871 ==
LOC: ER 16:51 → PCU 20:47 → MEDS 20:47 → PCU 21:38 → MEDS 05-01 12:28
PROVIDERS: Emergency Medicine; Internal Medicine; Nurse Practitioner Acute Care; Student in an Organized Health Care Education/Training Program; ADMIT Family Medicine
DX: A41.89 Other specified sepsis (principal); G92.8 Other toxic encephalopathy; J18.9 Pneumonia, unspecified organism; U07.1 COVID-19; J12.82 Pneumonia due to coronavirus disease 2019; J44.0 Chronic obstructive pulmonary disease with (acute) lower respiratory infection; G47.33 Obstructive sleep apnea (adult) (pediatric); R65.20 Severe sepsis without septic shock; I10 Essential (primary) hypertension; Z68.33 Body mass index [BMI] 33.0-33.9, adult; E11.42 Type 2 diabetes mellitus with diabetic polyneuropathy; I48.0 Paroxysmal atrial fibrillation; N40.0 Benign prostatic hyperplasia without lower urinary tract symptoms; E66.01 Morbid (severe) obesity due to excess calories; E78.5 Hyperlipidemia, unspecified; M10.9 Gout, unspecified; L40.9 Psoriasis, unspecified; F10.21 Alcohol dependence, in remission; Z79.01 Long term (current) use of anticoagulants; Z79.84 Long term (current) use of oral hypoglycemic drugs; Z79.2 Long term (current) use of antibiotics; Z79.899 Other long term (current) drug therapy; Z87.891 Personal history of nicotine dependence; Z85.038 Personal history of other malignant neoplasm of large intestine; Z98.890 Other specified postprocedural states; Z90.49 Acquired absence of other specified parts of digestive tract
CPT/HCPCS: 0241U; 36415; 71045; 80048; 80053; 81001; 82947; 83605; 83735; 84145; 85025; 87040; 87070; 87077; 87086; 87186; 87205; 87449; 93005; 93010; 94640; 94660; 94664; 94760; 94761; 94762; 96365; 96367; 96375; 99285-25; A9270; J0456; J0696; J1885; J3370; J7040; J7050; J7120